=== PATIENT | male | born 1935 | race Caucasian/White ===

== ENCOUNTER 2016-04-20 10:36 | Inpatient (IN) | payer MEDICARE, MEDICAID ==
[~2016-04-20] VITALS: Ht 175.3 cm; Wt 63.5 kg
[~2016-04-20 10:36] MED LIST: ACETAMINOPHEN650 M1 PO; BACTRIM DS TAB1 EAC1 ORAL; BISACODYL10 MG RC; CALCIUM + VITA1 EACH PO; DESYREL100 MG PO; DESYREL50 MG PO; DOCUSATE SODIU100 MG ORAL; DOCUSATE SODIU250 MG PO; FERROUS SULFAT325 M1 PO; FLOMAX0.4 MG ORAL; GABAPENTIN300 MG PO; HALDOL1 MG PO; KLONOPIN0.5 MG ORAL; LEVETIRACETAM500 MG ORAL; MEGACE400 MG/10 PO; METAMUCIL1 PKT GT; METOPROLOL SUCC50 MG PO; MILK OF MA400 MG/5 M PO; MULTIVITAMINS1 EAC1 PO; NEURONTIN600 MG PO; RESTORIL7.5 MG PO; SEROQUEL200 MG PO; SEROQUEL400 MG PO; VITAMIN C500 MG PO; ZYPREXA5 MG ORAL
[2016-04-20 11:30] VITALS: BP 136/63
[2016-04-20 11:53] LABS: BASOPHILS % (AUTO) 2.2 % (0.0-2.0); EOSINOPHILS % (AUTO) 5.9 % (0.0-3.0); LYMPHOCYTES % (AUTO) 30.6 % (20.0-45.0); MEAN CORPUSCULAR HEMOGLOBIN 31.9 PG (27.0-31.0); MEAN CORPUSCULAR HGB CONC 32.8 G/DL (32.0-36.0); MEAN CORPUSCULAR VOLUME 97 FL (80-99); MEAN PLATELET VOLUME 7.6 FL (6.5-10.1); MONOCYTES % (AUTO) 10.9 % (1.0-10.0); NEUTROPHILS % (AUTO) 50.5 % (45.0-75.0); PLATELET COUNT 199 K/UL (150-450); RED BLOOD COUNT 3.57 M/UL (4.70-6.10); RED CELL DISTRIBUTION WIDTH 12.3 % (11.6-14.8); WHITE BLOOD COUNT 5.6 K/UL (4.8-10.8)
[2016-04-20 11:58] LABS: PROTHROMBIN TIME 10.2 SEC (9.30-11.50)
[2016-04-20 12:02] LABS: ALANINE AMINOTRANSFERASE 13 U/L (3-41); ALBUMIN/GLOBULIN RATIO 1.1 (1.0-2.7); ANION GAP 11 (5-15); ASPARTATE AMINO TRANSFERASE 19 U/L (5-40); CARBON DIOXIDE 28 mEQ/L (20-30); CHLORIDE 98 mEQ/L (98-107); HEMOLYSIS 9; LIPASE 27 U/L (< 60); POTASSIUM 4.4 mEQ/L (3.4-4.9); SODIUM 137 mEQ/L (135-145); TOTAL PROTEIN 6.2 g/dL (6.6-8.7); TROPONIN I < 0.30 ng/mL (<=0.30)
--- NOTE | 2016-04-20 12:05 | Diagnostic Imaging Report ---
Indication: Chest Pain Comparison: 01/16/12 A single view chest radiograph was obtained. Findings: No definite infiltrate or pulmonary vascular congestion identified. The heart is normal in size. The aorta is mildly enlarged consistent with atherosclerotic vascular disease. The bones are osteopenic. Impression: No acute disease
[2016-04-20 12:12] LABS: APPEARANCE,URINE SLIGHTLY CLOUDY; KETONES,URINE NEGATIVE (NEGATIVE); LEUKOCYTE ESTERASE ,URINE 1+ (NEGATIVE); NITRITE,URINE POSITIVE (NEGATIVE); PH,URINE 7 (4.5-8.0); PROTEIN,URINE NEGATIVE (NEGATIVE); UROBILINOGEN,URINE NORMAL MG/DL (0.0-1.0)
[2016-04-20 12:13] LABS: CKMB 2.1 ng/mL (< 6.7)
[2016-04-20 12:25] LABS: BACTERIA,URINE MODERATE /HPF; RBC,URINE 0-2 /HPF (0 - 0); SQUAMOUS EPITHELIAL CELL,UR OCCASIONAL /LPF (NONE/OCC)
[2016-04-20] MEDS ORDERED: cefTRIAXone 1 GM in NS 55 ML IVPB ONE (12:45)
[2016-04-20] MEDS ORDERED: cefTRIAXone 1 GM in D5W 55 ML IVPB ONE (13:30)
[2016-04-20 13:49] VITALS: BP 146/78
--- NOTE | 2016-04-20 14:22 | Emergency Room Report ---
History of Present Illness General Chief Complaint: General Complaint Source: EMS, Caregiver Present Illness HPI Patient presents with complaints of general weakness Patient himself is nonverbal cannot provide any input Patient had a previous CVA History of present illness remains significantly limited Patient's caretakers state that the patient has appeared to be weaker than usual less interactive No reports of vomiting or diarrhea Unknown regarding obvious fever Denies any rash Allergies: Coded Allergies: No Known Allergies (Verified , 02/19/06) Patient History Limited by: medical condition Past Medical History: see triage record Pertinent Family History: none Reviewed Nursing Documentation: PMH: Agreed, PSxH: Agreed Nursing Documentation-PMH Past Medical History Deferred: Pt Cognitively Impaired Hx Cardiac Problems: No Hx Hypertension: No Hx Pacemaker: No Hx Asthma: No Hx COPD: No Hx Diabetes: No Hx Cancer: No Hx Gastrointestinal Problems: No Hx Dialysis: No History Of Psychiatric Problem: No Hx Neurological Problems: No - Seizures Hx Cerebrovascular Accident: No Hx Dementia: Yes Hx Seizures: Yes Hx Aphasia: Yes Review of Systems All Other Systems: limited - Other than the ones mentioned in the history of present illness all others are reviewed however they do stay limited due to the patient's mental status Physical Exam Vital Signs Date Time Temp Pulse Resp B/P Pulse Ox O2 Delivery O2 Flow Rate FiO2 04/20/16 11:00 98.9 04/20/16 11:00 79 16 120/80 98 Room Air Sp02 EP Interpretation: reviewed, normal General Appearance: well appearing, no apparent distress Head: normocephalic, atraumatic Eyes: bilateral eye EOMI, bilateral eye PERRL ENT: hearing grossly normal, TMs + canals normal, uvula midline, dry mucus membranes Neck: full range of motion, supple, no meningismus, no bony tend Respiratory: no rhonchi, no respiratory distress, no retraction, no accessory muscle use, crackles - Crackles in the right lower lobe Cardiovascular #1: normal peripheral pulses, regular rate, rhythm, no edema, no gallop, no JVD, no murmur Gastrointestinal: normal bowel sounds, non tender, soft, no mass, no organomegaly, non-distended, no guarding, no hernia, no pulsatile mass, no rebound Genitourinary: no CVA tenderness Musculoskeletal: other - Patient generally weak appears to have deficit on the right side compared to left 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 that there is no acute deficit Neurologic: responsive - To verbal stimuli patient tracks well with his eyes, but does not follow commands and is nonverbal, , sensory intact Psychiatric: mood/affect normal Skin: normal color, no rash, warm/dry, palpation normal Lymphatic: normal inspection, no adenopathy Medical Decision Making Diagnostic Impression: Primary Impression: Sepsis Additional Impressions: UTI (urinary tract infection) Dehydration ER Course Patient is a fairly complex patient with multiple differential to consideration including but not limited to cardiac cardiopulmonary , infectious and vascular emergencies Patient's urine sample did show positive nitrites and findings in line with UTI Patient was further hydrated no signs of any severe sepsis and the patient was admitted for further care Please note that initially CT head was ordered however the patient is unable to tolerate the test Labs Test 04/20/16 11:39 04/20/16 11:56 White Blood Count 5.6 K/UL (4.8-10.8) Red Blood Count 3.57 M/UL (4.70-6.10) Hemoglobin 11.4 G/DL (14.2-18.0) Hematocrit 34.8 % (42.0-52.0) Mean Corpuscular Volume 97 FL (80-99) Mean Corpuscular Hemoglobin 31.9 PG (27.0-31.0) Mean Corpuscular Hemoglobin Concent 32.8 G/DL (32.0-36.0) Red Cell Distribution Width 12.3 % (11.6-14.8) Platelet Count 199 K/UL (150-450) Mean Platelet Volume 7.6 FL (6.5-10.1) Neutrophils (%) (Auto) 50.5 % (45.0-75.0) Lymphocytes (%) (Auto) 30.6 % (20.0-45.0) Monocytes (%) (Auto) 10.9 % (1.0-10.0) Eosinophils (%) (Auto) 5.9 % (0.0-3.0) Basophils (%) (Auto) 2.2 % (0.0-2.0) Prothrombin Time 10.2 SEC (9.30-11.50) Prothromb Time International Ratio 1.0 (0.9-1.1) Activated Partial Thromboplast Time 21 SEC (23-33) Sodium Level 137 mEQ/L (135-145) Potassium Level 4.4 mEQ/L (3.4-4.9) Chloride Level 98 mEQ/L (98-107) Carbon Dioxide Level 28 mEQ/L (20-30) Anion Gap 11 (5-15) Blood Urea Nitrogen 15 mg/dL (7-23) Creatinine 1.0 mg/dL (0.7-1.2) Estimat Glomerular Filtration Rate mL/min (>60) Glucose Level 95 mg/dL (74-106) Calcium Level 9.0 mg/dL (8.6-10.2) Total Bilirubin < 0.2 mg/dL (0.0-1.2) Aspartate Amino Transf (AST/SGOT) 19 U/L (5-40) Alanine Aminotransferase (ALT/SGPT) 13 U/L (3-41) Alkaline Phosphatase 66 U/L (40-129) Total Creatine Kinase 73 U/L (38-174) Creatine Kinase MB 2.1 ng/mL (< 6.7) Creatine Kinase MB Relative Index 2.8 Troponin I < 0.30 ng/mL (<=0.30) Pro-B-Type Natriuretic Peptide 148 pg/mL (0-450) Total Protein 6.2 g/dL (6.6-8.7) Albumin 3.3 g/dL (3.5-5.2) Globulin 2.9 g/dL Albumin/Globulin Ratio 1.1 (1.0-2.7) Lipase 27 U/L (< 60) Urine Color Pale yellow Urine Appearance Slightly cloudy Urine pH 7 (4.5-8.0) Urine Specific [place] 1.010 (1.005-1.035) Urine Protein Negative (NEGATIVE) Urine Glucose (UA) Negative (NEGATIVE) Urine Ketones Negative (NEGATIVE) Urine Occult Blood 1+ (NEGATIVE) Urine Nitrite Positive (NEGATIVE) Urine Bilirubin Negative (NEGATIVE) Urine Urobilinogen Normal MG/DL (0.0-1.0) Urine Leukocyte Esterase 1+ (NEGATIVE) Urine RBC 0-2 /HPF (0 - 0) Urine WBC 2-4 /HPF (0 - 0) Urine Squamous Epithelial Cells Occasional /LPF Urine Bacteria Moderate /HPF (NONE) Rhythm Strip Diag. Results EP Interpretation: yes Rate: 77 Rhythm: NSR, no PVC's, no ectopy Chest X-Ray Diagnostic Results EP Interpretation: Yes Findings: no consolidation, no effusion, no pneumothorax, other - Chronic elevated right hemidiaphragm Number of Views: 1 CT/MRI/US Diagnostic Results CT/MRI/US Diagnostic Results : Impression CT head ordered: Patient unable to tolerate the test no exam done Last Vital Signs Date Time Temp Pulse Resp B/P Pulse Ox O2 Delivery O2 Flow Rate FiO2 04/20/16 13:49 97.1 68 21 146/78 100 Room Air Status: improved Disposition: ADMITTED INPATIENT Condition: Serious Referrals: NON PHYSICIAN (PCP) KATE GONSALEZ D.O. Apr 20, 2016 14:22
[2016-04-20 17:22] VITALS: BP 156/88
[2016-04-20] MEDS ORDERED: KLONOPIN0.5 MG ORAL (18:43)
[2016-04-20] MEDS ORDERED: RESTASIS1 EACH BOTH EYES (18:43)
--- NOTE | 2016-04-20 18:49 | Cardiology Report ---
APPROVED REPORT EKG Measurement Heart [id number] 160P49 [id number] Sinus rhythm with sinus arrhythmia with occasional premature ventricular complexes Otherwise normal ECG
[2016-04-20 20:00] VITALS: BP 140/66
[2016-04-20] MEDS ORDERED: QUEtiapine 200mg tab ORAL SCH (21:00)
[2016-04-20] MEDS ORDERED: clonazePAM 0.5mg tab ORAL SCH (21:00)
[2016-04-20] MEDS ORDERED: TraZODone 100mg tab ORAL SCH (21:00)
[2016-04-20] MEDS: Docusate 100mg cap ORAL SCH (22:08)
[2016-04-20] MEDS: OLANZapine 2.5mg tab ORAL SCH (22:09)
--- NOTE | 2016-04-20 23:37 | History and Physical Report ---
DATE OF ADMISSION: 04/20/2016 CHIEF COMPLAINT AND REASON FOR HOSPITALIZATION: The patient is a 80-year-old man, admitted with weakness and failure to thrive. HISTORY OF PRESENT ILLNESS: The patient is a resident of a home for the developmentally disabled. He has a history of likely mental retardation, psychosis, and epilepsy, which has been controlled. He is wheelchair bound after a hip fracture apparently in 2011. He never regained his strength. Over the past few days, he has become increasingly weak, unable to participate in transfers from the bed to the wheelchair, eating poorly, and declined in condition. The lead simulation modeling engineer sent him to the emergency room for concern of possible urinary tract infection or other treatable problem. The patient is unable to give the history. ALLERGIES: None known. MEDICATIONS: Metoprolol succinate 100 mg daily, clonazepam 0.25 mg in the morning and 0.75 mg at bedtime, Keppra 500 mg twice a day, olanzapine 5 mg twice a day, Haldol 1 mg three times a day, Seroquel 200 mg two times a day, Seroquel 400 mg at bedtime, trazodone 200 mg at bedtime, DSS 250 mg twice a day, and Restasis in both eyes twice a day. HABITS: He is a nondrinker and nonsmoker. SURGERIES: I believe he has had surgery for a hip fracture. SYSTEM REVIEW: The patient is unable. MAJOR PROBLEMS: As above. PHYSICAL EXAMINATION: GENERAL: The patient is seen in the emergency room lying in bed, in no acute distress. VITAL SIGNS: Temperature is 97.1, pulse 68, respirations 21, blood pressure 146/78, and BMI of 20.7. HEAD, EYES, EARS, NOSE, AND THROAT: He is aphakic in both eyes. Sclerae nonicteric. Oral mucosa moist. NECK: No adenopathy or thyroid enlargement. LUNGS: Clear. HEART: Rhythm is regular. I hear no murmur. ABDOMEN: Soft without organomegaly or masses. GENITOURINARY: Penis and testes normal. He is incontinent of urine. RECTAL: The patient was combative and unable to participate. SKIN: No decubitus. There is about 1 to 2 mm hyperpigmented lesion on the nose, which could be a scab or possibly an early basal cell carcinoma. NEUROLOGIC: He is alert and responsive. He shakes the examiner's hand. He moves all extremities with normal strength. Ocular motions are intact in all directions. Smile symmetric. Tongue is midline. He is unable to talk or carry on a conversation. Plantars showed no response. LABORATORY DATA: Labs are reviewed on the computer. IMPRESSION: 1. Decline in his status with difficulty participating and transfers and care. 2. Anorexia. 3. Mild protein-calorie malnutrition with an albumin of 3.3. 4. 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 5. Weakness, concerned for possible pain as he has been moaning, possible occult fracture or other reasons. PLAN: The patient will be observed as far as his behavior and neurologic condition. Pain Management. We will get some imaging to rule out occult fractures. We will watch him for any new developments, and check urine and urine culture for possible urinary tract infection and make further treatment plans as his condition warrants. Zhao Cordova M.D. DR: SHANE JOB#: [id number] CC:
[2016-04-21 04:43] VITALS: BP 139/72
[2016-04-21] MEDS: QUEtiapine 200mg tab ORAL SCH ×2 (06:20→12:13)
[2016-04-21 08:00] VITALS: BP 116/54
[2016-04-21 08:25] LABS: BASOPHILS % (AUTO) 1.4 % (0.0-2.0); EOSINOPHILS % (AUTO) 3.8 % (0.0-3.0); LYMPHOCYTES % (AUTO) 27.4 % (20.0-45.0); MEAN CORPUSCULAR HEMOGLOBIN 32.2 PG (27.0-31.0); MEAN CORPUSCULAR HGB CONC 33.2 G/DL (32.0-36.0); MEAN CORPUSCULAR VOLUME 97 FL (80-99); MEAN PLATELET VOLUME 7.2 FL (6.5-10.1); MONOCYTES % (AUTO) 7.9 % (1.0-10.0); NEUTROPHILS % (AUTO) 59.4 % (45.0-75.0); PLATELET COUNT 199 K/UL (150-450); RED BLOOD COUNT 3.51 M/UL (4.70-6.10); RED CELL DISTRIBUTION WIDTH 11.7 % (11.6-14.8); WHITE BLOOD COUNT 5.2 K/UL (4.8-10.8)
[2016-04-21 08:44] LABS: ALANINE AMINOTRANSFERASE 11 U/L (3-41); ALBUMIN/GLOBULIN RATIO 1.1 (1.0-2.7); ANION GAP 10 (5-15); ASPARTATE AMINO TRANSFERASE 17 U/L (5-40); CALCIUM 8.7 mg/dL (8.6-10.2); CARBON DIOXIDE 28 mEQ/L (20-30); CHLORIDE 98 mEQ/L (98-107); CHOLESTEROL 130 mg/dL (< 200); CHOLESTEROL/HDL RATIO 2.8 (3.3-4.4); CREATININE 1.1 mg/dL (0.7-1.2); HEMOLYSIS 4; LDL CHOLESTEROL (CALC.) 71 mg/dL (60-99); POTASSIUM 4.2 mEQ/L (3.4-4.9); SODIUM 136 mEQ/L (135-145); TOTAL PROTEIN 5.9 g/dL (6.6-8.7)
[2016-04-21 08:48] LABS: TROPONIN I < 0.30 ng/mL (<=0.30)
[2016-04-21] MEDS ORDERED: clonazePAM 0.5mg tab ORAL SCH (09:00)
[2016-04-21] MEDS ORDERED: QUEtiapine 200mg tab ORAL SCH (09:00)
[2016-04-21] MEDS ORDERED: TraZODone 100mg tab ORAL SCH (09:00)
[2016-04-21] MEDS ORDERED: Enoxaparin 40mg Inj SUBQ SCH (09:00)
[2016-04-21 09:04] LABS: FREE T3 1.8 pg/mL (2.3-4.2)
[2016-04-21] MEDS: Docusate 100mg cap ORAL SCH ×2 (10:29→18:00)
[2016-04-21] MEDS: OLANZapine 2.5mg tab ORAL SCH ×2 (10:29→18:36)
[2016-04-21] MEDS ORDERED: BACTRIM-DS1 EA ORAL (14:05)
[2016-04-21 16:00] VITALS: BP 142/63
[2016-04-21] MEDS ORDERED: Bactrim DS (160mg/800mg) tab ORAL SCH (18:00)
[2016-04-21] MEDS ORDERED: Haloperidol 1mg tab ORAL SCH (21:00)
--- NOTE | 2016-04-22 17:37 | Discharge Summary ---
DATE OF ADMISSION: 04/20/2016 DATE OF DISCHARGE: 04/21/2016 NOTE: POOR AUDIO QUALITY PERTINENT HISTORY: The patient is a 80-year-old man, admitted with weakness and failure to thrive. He has a history of mental retardation, psychosis, and epilepsy. He had hip fracture in 2001, has not been ambulatory since then, but transfer from the bed to the wheelchair, but now he has become increasingly weak and unable to participate in transfers. PERTINENT PHYSICAL FINDINGS: GENERAL: The patient is alert, nonverbal. HEENT: He is aphakic. LUNGS: Clear. HEART: Regular rhythm. ABDOMEN: Soft without organomegaly. EXTREMITIES: No edema. NEUROLOGIC: Alert and responsive. No focal weakness. Moves all extremities. COURSE IN THE HOSPITAL: The patient was observed for any new medical problems. He had mild anemia with the hemoglobin of 11.3, normal electrolytes, and normal troponins x2. Albumin is 3.3. TSH was normal . He tolerated diet well. Short after arrival to the floor, he became agitated and trying to climb on the bed and his usual psychotropic medications were resumed and a sitter was placed and he became calm again. Urinalysis had 2 to 4 white cells per high-power field and moderate bacteria. Culture growing gram-negative bacteria, likely contaminant specimen but he was stared on Bactrim. The patient apparently was at his baseline mental status discharged back to this facility in stable condition but chronically weak FINAL DIAGNOSES: 1. Failure to thrive. 2. Gram-negative urinary tract infection versus contaminated specimen. 3. Mental retardation. 4. History of psychosis. 5. History of . 6. Gait disorder, status post hip fracture in 2011. 7. Generalized weakness. 8. Declined status, which could be due to psychotropic treatment or other unrecognized illness to be determined later. DISCHARGE DISPOSITION: Discharge back to . Zhao Cordova M.D. DR: JORGE A JOB#: [id number] CC:
[2016-04-23 10:32] LABS: CORTISOL AM 12.6 ug/dL (6.0-20.0)
== END 2016-04-21 20:05 | disposition home or self-care (01) | DRG 690 ==
LOC: ENRESERVTM → ENRESERVDT → EMR 11:10 → 4E 11:28 → EDBEDREQ 12:23
DX: N39.0 Urinary tract infection, site not specified (principal); R63.0 Anorexia; E86.0 Dehydration; R62.7 Adult failure to thrive; E44.1 Mild protein-calorie malnutrition; Z78.1 Physical restraint status; D64.9 Anemia, unspecified; F79 Unspecified intellectual disabilities; R26.9 Unspecified abnormalities of gait and mobility; Z68.20 Body mass index [BMI] 20.0-20.9, adult; Z99.3 Dependence on wheelchair
CPT/HCPCS: 36415; 71010; 80053; 80061; 80299; 81003; 82533; 82550; 82553; 83690; 83880; 84439; 84443; 84480; 84481; 84484; 85025; 85610; 85730; 87081; 87086; 87181; 93005

== ENCOUNTER 2017-03-12 11:32 | Inpatient (IN) | payer MEDICARE, MEDICAID ==
[~2017-03-12] VITALS: Ht 167.6 cm; Wt 68.0 kg
[~2017-03-12 11:32] MED LIST changes: +BACTRIM-DS1 EA ORAL; +RESTASIS1 EACH BOTH EYES
[2017-03-12 12:18] VITALS: BP 134/59
[2017-03-12] MEDS ORDERED: KLONOPIN0.5 MG ORAL (12:28)
[2017-03-12 12:33] LABS: ANION GAP 8 mmol/L (5-15); CALCIUM 8.9 MG/DL (8.5-10.1); CARBON DIOXIDE 25 MMOL/L (21-32); CHLORIDE 103 MMOL/L (98-107); CREATININE 0.9 MG/DL (0.55-1.30); POTASSIUM 5.3 MMOL/L (3.5-5.1); SODIUM 135 MMOL/L (136-145)
[2017-03-12 12:47] LABS: ALANINE AMINOTRANSFERASE 23 U/L (12-78); ALBUMIN/GLOBULIN RATIO 0.8 (1.0-2.7); ASPARTATE AMINO TRANSFERASE 35 U/L (15-37); CKMB 2.1 NG/ML (0.0-3.6); TOTAL PROTEIN 6.9 G/DL (6.4-8.2)
[2017-03-12 13:15] LABS: BASOPHILS % (AUTO) 1.8 % (0.0-2.0); EOSINOPHILS % (AUTO) 7.9 % (0.0-3.0); LYMPHOCYTES % (AUTO) 29.6 % (20.0-45.0); MEAN CORPUSCULAR HEMOGLOBIN 31.3 PG (27.0-31.0); MEAN CORPUSCULAR HGB CONC 32.8 G/DL (32.0-36.0); MEAN CORPUSCULAR VOLUME 95 FL (80-99); MEAN PLATELET VOLUME 7.2 FL (6.5-10.1); MONOCYTES % (AUTO) 12.3 % (1.0-10.0); NEUTROPHILS % (AUTO) 48.5 % (45.0-75.0); PLATELET COUNT 203 K/UL (150-450); RED BLOOD COUNT 3.76 M/UL (4.70-6.10); WHITE BLOOD COUNT 5.6 K/UL (4.8-10.8)
--- NOTE | 2017-03-12 13:17 | Emergency Room Report ---
History of Present Illness General Chief Complaint: Generalized Weakness Source: Medical Record, Caregiver Present Illness HPI History of present illness otherwise limited because patient is nonverbal History of schizophrenia, mental retardation per health care worker accompanying patient, facility sent patient because he's been making moaning noises more than usual, no bowel movement for 2-3 days. Health care worker states she has known patient for 3 years, seems at baseline relatively. facility also reports patient doesn't want to eat or drink in the last 2-3 days Allergies: Coded Allergies: No Known Allergies (Verified , 02/19/06) Patient History Limited by: medical condition Past Medical History: psych hx Past Surgical History: none Pertinent Family History: none Social History: Denies: smoking, alcohol use, drug use Immunizations: UTD Reviewed Nursing Documentation: PMH: Agreed, PSxH: Agreed Nursing Documentation-PMH Past Medical History Deferred: Pt Cognitively Impaired Past Medical History: No History, Except For Hx Cardiac Problems: No - mental retardation Hx Hypertension: Yes Hx Pacemaker: No Hx Asthma: No Hx COPD: No Hx Diabetes: No Hx Cancer: No Hx Gastrointestinal Problems: No Hx Dialysis: No History Of Psychiatric Problem: Yes - schizophrenia Hx Neurological Problems: Yes Hx Cerebrovascular Accident: No Hx Dementia: Yes Hx Seizures: Yes Hx Aphasia: Yes Review of Systems All Other Systems: limited - nonverbal Physical Exam Vital Signs Date Time Temp Pulse Resp B/P (MAP) Pulse Ox O2 Delivery O2 Flow Rate FiO2 03/12/17 11:44 97.2 81 16 134/59 99 Room Air Sp02 EP Interpretation: reviewed, normal General Appearance: normal inspection, well appearing, no apparent distress, alert, GCS 15, non-toxic Head: normocephalic, atraumatic Eyes: bilateral eye PERRL, bilateral eye EOMI ENT: normal ENT inspection, normal pharynx, no angioedema, TMs + canals normal , uvula midline, moist mucus membranes Neck: normal inspection, full range of motion, supple, thyroid normal, no meningismus, no bony tend Respiratory: normal inspection, lungs clear, normal breath sounds, no rhonchi, no respiratory distress, no retraction, no accessory muscle use, no wheezing, speaking full sentences Cardiovascular #1: regular rate, rhythm, no edema, no JVD, normal capillary refill Gastrointestinal: normal inspection, normal bowel sounds, non tender, soft, no mass, no peritonitis, non-distended, no guarding, no hernia, no pulsatile mass Genitourinary: no CVA tenderness Musculoskeletal: normal inspection, back normal, normal range of motion, no calf tenderness, pelvis stable, Aleja's Sign negative Neurologic: normal inspection, alert, responsive, ui ux engineer III-XII nml as tested, motor strength/tone normal, cerebellar normal, normal gait, speech normal Psychiatric: normal inspection, judgement/insight normal, mood/affect normal, no suicidal/homicidal ideation, no delusions Skin: normal inspection, normal color, no rash Lymphatic: normal inspection, no adenopathy Medical Decision Making Medicare Attestation I Ney Blevins MD hereby attest that the medical record entry for date of service, 03/12/17 accurately reflects signatures/notations that I made in my capacity as MD when I treated/diagnosed the above listed Medicare beneficiary. I attest that this information is true, accurate and complete to the best of my knowledge. I understand that any falsification, omission, or concealment of material fact may subject me to administrative, civil, or criminal liability. This patient warrants hospital admission for extreme of age and has a condition that cannot be treated as outpatient. Diagnostic Impression: Primary Impression: Episode of generalized weakness Additional Impression: Constipation Qualified Codes: K59.00 - Constipation, unspecified ER Course Labs do not show leukocytosis, H&H stable Mild hyperkalemia, likely hemolyzed from lab error Chest x-ray unchanged from March Vital signs stable, afebrile admitted for weakness, failure to thrive and not eating Dr. Cordova endorsed for [facility] [place] [place] admission at 1:20 PM as previous admitting physician EKG Diagnostic Results Rate: normal, other - PACs, bigeminy Rhythm: NSR ST Segments: no acute changes ASA given to the pt in ED: No Rhythm Strip Diag. Results EP Interpretation: yes Rate: 74 Rhythm: NSR, no ectopy, other - 1PVC Chest X-Ray Diagnostic Results Chest X-Ray Diagnostic Results : Chest X-Ray Ordered: Yes # of Views/Limited/Complete: 1 View Indication: Other - FTT EP Interpretation: Yes Interpretation: no consolidation, no effusion, no pneumothorax Impression: No acute disease Electronically Signed by: Dr Ney Blevins MD Last Vital Signs Date Time Temp Pulse Resp B/P (MAP) Pulse Ox O2 Delivery O2 Flow Rate FiO2 03/12/17 12:18 97.2 16 134/59 99 Room Air 03/12/17 11:44 81 Status: improved Disposition: ADMITTED INPATIENT Condition: Stable Referrals: NON PHYSICIAN (PCP) NEY BLEVINS M.D. Mar 12, 2017 13:17
[2017-03-12 13:36] VITALS: BP 115/58
[2017-03-12 14:14] LABS: APPEARANCE,URINE CLEAR; KETONES,URINE NEGATIVE (NEGATIVE); LEUKOCYTE ESTERASE ,URINE NEGATIVE (NEGATIVE); NITRITE,URINE NEGATIVE (NEGATIVE); PH,URINE 6.5 (4.5-8.0); PROTEIN,URINE NEGATIVE (NEGATIVE); UROBILINOGEN,URINE NORMAL MG/DL (0.0-1.0)
[2017-03-12 14:43] LABS: WBC,URINE 0-2 /HPF (0 - 0)
[2017-03-12 14:44] LABS: BACTERIA,URINE FEW /HPF; SQUAMOUS EPITHELIAL CELL,UR OCCASIONAL /LPF (NONE/OCC)
--- NOTE | 2017-03-12 15:10 | Diagnostic Imaging Report ---
Indication: Cough Technique: One view of the chest Comparison: 04/20/2016 Findings: The right hemidiaphragm is elevated. There are compressive atelectatic changes at both lung bases the left hemidiaphragm is obscured, could indicate a small amount of pleural fluid. There is reticular parenchymal opacity in the right upper lung and retrocardiac region. Impression: Suspect right upper lung and retrocardiac infiltrates Possible small left pleural effusion Other findings as noted
[2017-03-12 15:48] VITALS: BP 154/76
[2017-03-12] MEDS ORDERED: D5 1/2NS 1,000 ML IV SCH (18:30)
[2017-03-12] MEDS: Docusate 250mg cap ORAL SCH (19:06)
[2017-03-12] MEDS: TraZODone 100mg tab ORAL SCH (21:52)
[2017-03-12] MEDS: Heparin 5000 units/ml inj SUBQ SCH (21:54)
[2017-03-13 07:59] LABS: BASOPHILS % (AUTO) 1.6 % (0.0-2.0); EOSINOPHILS % (AUTO) 7.6 % (0.0-3.0); LYMPHOCYTES % (AUTO) 37.4 % (20.0-45.0); MEAN CORPUSCULAR HEMOGLOBIN 32.8 PG (27.0-31.0); MEAN CORPUSCULAR HGB CONC 34.7 G/DL (32.0-36.0); MEAN CORPUSCULAR VOLUME 94 FL (80-99); MEAN PLATELET VOLUME 7.5 FL (6.5-10.1); NEUTROPHILS % (AUTO) 42.5 % (45.0-75.0); PLATELET COUNT 213 K/UL (150-450); RED BLOOD COUNT 3.97 M/UL (4.70-6.10); WHITE BLOOD COUNT 4.9 K/UL (4.8-10.8)
[2017-03-13 08:00] VITALS: BP 147/79
[2017-03-13 08:30] LABS: ALANINE AMINOTRANSFERASE 21 U/L (12-78); ALBUMIN/GLOBULIN RATIO 0.7 (1.0-2.7); ANION GAP 9 mmol/L (5-15); ASPARTATE AMINO TRANSFERASE 20 U/L (15-37); CALCIUM 9.2 MG/DL (8.5-10.1); CARBON DIOXIDE 23 MMOL/L (21-32); CHLORIDE 102 MMOL/L (98-107); POTASSIUM 4.3 MMOL/L (3.5-5.1); SODIUM 134 MMOL/L (136-145); TOTAL PROTEIN 7.3 G/DL (6.4-8.2)
[2017-03-13] MEDS: Metoprolol Succinate XL 100mg tab ORAL SCH (08:57)
[2017-03-13] MEDS: Docusate 250mg cap ORAL SCH ×2 (08:58→17:27)
[2017-03-13] MEDS: Heparin 5000 units/ml inj SUBQ SCH ×2 (09:02→20:53)
[2017-03-13 11:46] VITALS: BP 156/70
[2017-03-13] MEDS: cefTRIAXone 1 GM in D5W 55 ML IVPB SCH (12:00)
[2017-03-13] MEDS: Azithromycin 250mg tab ORAL SCH (12:07)
[2017-03-13] MEDS ORDERED: Haloperidol 5mg/ml Inj IM PRN (14:45)
[2017-03-13 16:00] VITALS: BP 142/65
[2017-03-13] MEDS ORDERED: NS 500ML ONE (16:15)
[2017-03-13 20:00] VITALS: BP 135/70
[2017-03-13] MEDS: TraZODone 100mg tab ORAL SCH (20:52)
--- NOTE | 2017-03-13 21:45 | History and Physical Report ---
DATE OF ADMISSION: 03/12/2017 CHIEF COMPLAINT/REASON FOR HOSPITALIZATION: The patient is an 81-year-old male, admitted with weakness and failure to thrive. HISTORY OF PRESENT ILLNESS: The patient has had a history of mental retardation, nonverbal, and schizophrenia, on multiple medications. He also apparently had a seizure disorder, but no recent seizure. He lives in assisted living facility for people with mental disorders. The patient over the last few days has been eating less, increasing lethargy, increasing weakness, and presented to the hospital. The staff is concerned that he may have had an infection or other change in condition. The patient is unable to give a history. PAST SURGICAL HISTORY: Hip fracture, which left him wheelchair independent, although he can bear weight. MEDICATIONS: Toprol 100 mg daily, Klonopin 0.25 mg in the morning and 0.75 mg at bedtime, Keppra 500 mg b.i.d., olanzapine 10 mg half a pill of 5 mg b.i.d., trazodone 200 mg at bedtime, Seroquel 200 mg three times a day and Seroquel 400 mg at bedtime, and DSS 250 twice a day. SYSTEM REVIEW: The patient is unable. PHYSICAL EXAMINATION: GENERAL: The patient is lying in bed, in no acute distress. He is looking about, is nonverbal. VITAL SIGNS: Temperature 98.1, pulse 89, respirations 16, blood pressure 147/79, and pulse oximetry 94% on room air. HEAD, EYES, EARS, NOSE, AND THROAT: Sclerae are nonicteric. Ocular motions are intact in all directions. Oral mucosa slightly dry. There is some mild skin irritation around the nose, but no abscess. NECK: No adenopathy. LUNGS: Clear. HEART: Regular rhythm. No murmur. ABDOMEN: Soft. No organomegaly or masses. EXTREMITIES: No edema, cyanosis, or clubbing. GENITOURINARY: Penis and testes normal. RECTAL: Deferred. PERTINENT LABORATORY AND DIAGNOSTIC DATA: Chest x-ray shows suspect right upper lung and retrocardiac infiltrates, possible small left pleural effusion. White count 4.9, hemoglobin is 13. Sodium 135, potassium 5.3, BUN 19, and creatinine 0.9. Troponin is 0. Albumin 3.1. Calcium is 8.9. The urinalysis shows 5 to 10 RBCs and 0 to 2 white cells per high-power field. IMPRESSION: 1. Failure to thrive. 2. Mild dehydration. 3. Mild protein-calorie malnutrition. 4. Epilepsy. 5. Mental retardation. 6. Schizophrenia. 7. Questionable pulmonary infiltrates versus chronic changes on chest x-ray. 8. Nonambulatory after prior hip fracture. 9. Advanced age. PLAN: The patient will be observed for his mental status, hydration, pulmonary problems, empiric antibiotics have been started. I have lowered the dose of his antipsychotics, which may make him lethargic and we will get a psychiatric consult. In view of his inability to give a history, he needs to be watched closely as there is a recent decline in status. I have discussed this with his vice president business & corporate development, Yoselyn Graff who is the account administrator of his facility. Zhao Cordova M.D. DR: ROXANNE JOB#: [id number] CC:
[2017-03-14] VITALS: BP 138/88
[2017-03-14 04:00] VITALS: BP 144/83
[2017-03-14 07:43] LABS: BASOPHILS % (AUTO) 1.4 % (0.0-2.0); EOSINOPHILS % (AUTO) 3.3 % (0.0-3.0); LYMPHOCYTES % (AUTO) 30.8 % (20.0-45.0); MEAN CORPUSCULAR HEMOGLOBIN 31.8 PG (27.0-31.0); MEAN CORPUSCULAR HGB CONC 33.6 G/DL (32.0-36.0); MEAN CORPUSCULAR VOLUME 95 FL (80-99); MEAN PLATELET VOLUME 7.5 FL (6.5-10.1); MONOCYTES % (AUTO) 11.2 % (1.0-10.0); NEUTROPHILS % (AUTO) 53.3 % (45.0-75.0); PLATELET COUNT 232 K/UL (150-450); RED BLOOD COUNT 4.32 M/UL (4.70-6.10); RED CELL DISTRIBUTION WIDTH 11.7 % (11.6-14.8); WHITE BLOOD COUNT 5.6 K/UL (4.8-10.8)
[2017-03-14 08:00] VITALS: BP_SYST 140; BP_SYST 20; BP_DIAS 76; BP_DIAS 94
[2017-03-14] MEDS: Heparin 5000 units/ml inj SUBQ SCH ×2 (08:23→20:24)
[2017-03-14] MEDS: Metoprolol Succinate XL 100mg tab ORAL SCH (08:25)
[2017-03-14] MEDS: Azithromycin 250mg tab ORAL SCH (08:25)
[2017-03-14] MEDS: Docusate 250mg cap ORAL SCH ×2 (08:25→17:33)
[2017-03-14] MEDS: cefTRIAXone 1 GM in D5W 55 ML IVPB SCH (08:26)
[2017-03-14 08:39] LABS: ANION GAP 11 mmol/L (5-15); CALCIUM 9.2 MG/DL (8.5-10.1); CARBON DIOXIDE 24 MMOL/L (21-32); CHLORIDE 101 MMOL/L (98-107); POTASSIUM 4.6 MMOL/L (3.5-5.1); SODIUM 136 MMOL/L (136-145)
--- NOTE | 2017-03-14 11:55 | General Progress Note ---
Assessment/Plan Problem List: (1) Anorexia ICD Codes: R63.0 - Anorexia SNOMED: 23638728 (2) Schizophrenia ICD Codes: F20.9 - Schizophrenia, unspecified SNOMED: 01906173 (3) Mental retardation ICD Codes: F79 - Unspecified intellectual disabilities SNOMED: 82077563, 224777163, 401640723 (4) Abnormal chest xray ICD Codes: R93.8 - Abnormal findings on diagnostic imaging of other specified body structures SNOMED: 351128313, 873646839 (5) Weakness ICD Codes: R53.1 - Weakness SNOMED: 96200439 (6) Episode of generalized weakness ICD Codes: R53.1 - Weakness SNOMED: 61707131 (7) Failure to thrive SNOMED: 37324023 Assessment/Plan antipsychotic doses reduced, watch po intake and behavior, repeat cxr, empiric atb for possible cap Subjective ROS Limited/Unobtainable: Yes Allergies: Coded Allergies: No Known Allergies (Verified , 02/19/06) Objective Last 24 Hour Vital Signs Date Time Temp Pulse Resp B/P (MAP) Pulse Ox O2 Delivery O2 Flow Rate FiO2 03/14/17 08:25 92 140/76 03/14/17 08:00 97.3 92 20 20/94 94 03/14/17 08:00 97.3 92 20 140/76 94 Room Air 03/14/17 07:16 97.3 03/14/17 04:00 100.0 94 21 144/83 94 03/14/17 00:00 98.5 91 21 138/88 93 03/13/17 20:00 98.6 95 21 135/70 95 03/13/17 16:00 97.9 96 18 142/65 97 Room Air Laboratory Tests 03/14/17 05:15: White Blood Count 5.6, Red Blood Count 4.32L, Hemoglobin 13.7L, Hematocrit 40.8L , Mean Corpuscular Volume 95, Mean Corpuscular Hemoglobin 31.8H, Mean Corpuscular Hemoglobin Concent 33.6, Red Cell Distribution Width 11.7, Platelet Count 232, Mean Platelet Volume 7.5, Neutrophils (%) (Auto) 53.3, Lymphocytes (% ) (Auto) 30.8, Monocytes (%) (Auto) 11.2H, Eosinophils (%) (Auto) 3.3H, Basophils (%) (Auto) 1.4, Sodium Level 136, Potassium Level 4.6, Chloride Level 101, Carbon Dioxide Level 24, Anion Gap 11, Blood Urea Nitrogen 17, Creatinine 1.0, Estimat Glomerular Filtration Rate , Glucose Level 88, Calcium Level 9.2, Troponin I 0.000 Height (Feet): 5 Height (Inches): 6.00 Weight (Pounds): 150 General Appearance: no apparent distress, alert EENT: normal ENT inspection Neck: normal alignment Cardiovascular: normal rate Respiratory/Chest: lungs clear Abdomen: non tender, soft Extremities: non-tender Edema: no edema noted Arm (L), no edema noted Arm (R), no edema noted Leg (L), no edema noted Leg (R), no edema noted Pedal (L), no edema noted Pedal (R), no edema noted Generalized Neurologic: disoriented FER CABA Mar 14, 2017 11:55
[2017-03-14 12:00] VITALS: BP 126/77
--- NOTE | 2017-03-14 13:49 | Diagnostic Imaging Report ---
Indication: Cough Technique: XRAY Chest 1v Comparison: 03/12/2017 Findings: Heart size and mediastinal contours are stable. There is slightly increased interstitial opacification/edema. Patchy opacities in the medial right lung and retrocardiac left lung unchanged. There is no large pleural effusion. No definite pneumothorax. Bones appear demineralized. No acute osseous abnormality seen. Impression: Slight interval worsening of interstitial opacification/edema. Persistent vague density in the medial right upper lung and patchy retrocardiac opacity.
--- NOTE | 2017-03-14 14:23 | Cardiology Report ---
APPROVED REPORT EKG Measurement Heart [id number] 142P18 [id number] Normal sinus rhythm with sinus arrhythmia Normal ECG
--- NOTE | 2017-03-14 14:35 | Cardiology Report ---
APPROVED REPORT EKG Measurement Heart [id number] RI 164P37 [id number] Sinus rhythm with premature atrial complexes in a pattern of bigeminy Cannot rule out Anterior infarct, age undetermined Abnormal ECG
[2017-03-14 16:00] VITALS: BP 138/74
[2017-03-14] MEDS: TraZODone 100mg tab ORAL SCH (20:21)
[2017-03-14 20:29] VITALS: BP 154/70
[2017-03-15 00:20] VITALS: BP 137/72
[2017-03-15 04:00] VITALS: BP 134/83
[2017-03-15 08:00] VITALS: BP 130/80
[2017-03-15] MEDS ORDERED: ZITHROMAX500 MG ORAL (09:55)
[2017-03-15] MEDS ORDERED: AZITHROMYCIN250 MG ORAL (09:56)
[2017-03-15] MEDS: Docusate 250mg cap ORAL SCH (10:26)
[2017-03-15 10:27] VITALS: BP 130/80
[2017-03-15] MEDS: Metoprolol Succinate XL 100mg tab ORAL SCH (10:27)
[2017-03-15] MEDS: cefTRIAXone 1 GM in D5W 55 ML IVPB SCH (10:27)
[2017-03-15] MEDS: Azithromycin 250mg tab ORAL SCH (10:27)
[2017-03-15] MEDS: Heparin 5000 units/ml inj SUBQ SCH (10:33)
--- NOTE | 2017-03-15 23:15 | Discharge Summary ---
DATE OF ADMISSION: 03/12/2017 DATE OF DISCHARGE: 03/15/2017 PERTINENT HISTORY: See the dictated History and Physical. The patient is an 81-year-old man admitted with failure to thrive, weakness, and lethargy. He is eating less, some anorexia, and presented to the hospital with concern of infection or other new problem. The patient has mental retardation and seizure disorder. He is nonverbal. PERTINENT PHYSICAL FINDINGS: GENERAL: The patient is lying in bed, nonverbal. HEENT: Oral mucosa is slightly dry. There is mild skin irritation in the nose. LUNGS: Clear. HEART: Regular rhythm. ABDOMEN: Soft without organomegaly. EXTREMITIES: No edema. NEUROLOGIC: Shows no focal findings. LABORATORY AND DIAGNOSTIC DATA: Pertinent labs show an albumin of 3.1. Chest x-ray showed suspect right upper lung and retrocardiac infiltrate and small left pleural effusion. HOSPITAL COURSE: He was started on empiric antibiotics. Repeat chest x-ray was done showing slight interval worsening of interstitial opacification and persistent vague density in the medial right upper lung and patchy retrocardiac opacity. However, the patient had no hypoxia, no cough, and it appeared that these changes may have been acute, possibly some aspiration, but he responded well to empiric antibiotics. His laboratories remained stable as did his clinical exam. His psychotropic medications were decreased in view of the lethargy and he had no exacerbation of psychosis. In view of the above, it was felt that he reached maximum hospital benefit and he was discharged back to his assisted living facility in stable condition. FINAL DIAGNOSES: 1. Failure to thrive. 2. Abnormal chest x-ray, possible aspiration pneumonia with comments as above versus chronic changes. 3. Mental retardation. 4. Schizophrenia. DISCHARGE DISPOSITION: Back to his assisted living on a regular diet as tolerated. DISCHARGE MEDICATIONS: Per the discharge medication list. Zhao Cordova M.D. DR: CHIDI JOB#: [id number] CC:
--- NOTE | 2017-03-17 16:54 | Diagnostic Imaging Report ---
Indications: Reason For Exam: DYSPHAGIA Technique: Patient ingested multiple substances under the supervision of speech pathology. Video fluoroscopic recording performed. Total fluoroscopy time 136 seconds. Total dose area product [id number] mGycm2 Comparison: none Findings: With all substances, there is early pooling in the vallecula and piriform sinuses. No evidence of aspiration or penetration. Good clearance of contrast bolus was swallowing demonstrated. Impression: Negative for aspiration or penetration Please refer to speech pathology report for more detailed analysis.
== END 2017-03-15 13:53 | disposition home or self-care (01) | DRG 640 ==
LOC: EMR 12:00 → 4E 12:35 → EDBEDREQ 13:59
DX: R62.7 Adult failure to thrive (principal); J69.0 Pneumonitis due to inhalation of food and vomit; E46 Unspecified protein-calorie malnutrition; R63.0 Anorexia; E86.0 Dehydration; F20.9 Schizophrenia, unspecified; K59.00 Constipation, unspecified; F79 Unspecified intellectual disabilities; G40.909 Epilepsy, unspecified, not intractable, without status epilepticus; R91.8 Other nonspecific abnormal finding of lung field; Z99.3 Dependence on wheelchair
CPT/HCPCS: 36415; 71010; 74230; 80048; 80053; 80299; 81003; 82550; 82553; 84484; 85025; 87081; 93005; 99285

== ENCOUNTER 2017-05-22 09:55 | Inpatient (IN) | payer MEDICARE, MEDICAID ==
[~2017-05-22] VITALS: Ht 172.7 cm; Wt 79.4 kg
[~2017-05-22 09:55] MED LIST changes: +AZITHROMYCIN250 MG ORAL; +ZITHROMAX500 MG ORAL
[2017-05-22] MEDS ORDERED: Haloperidol 5mg/ml Inj IM ONE (10:00)
[2017-05-22] MEDS ORDERED: LORazepam Inj 2mg/ml 1ml IM ONE (10:00)
[2017-05-22] MEDS ORDERED: DiphenhydrAMINE 50mg/ml Inj IM ONE (10:00)
--- NOTE | 2017-05-22 10:45 | Diagnostic Imaging Report ---
Indication: Shortness of breath Technique: XRAY Chest 1v. Comparison: 03/14/2017 Findings: The cardiomediastinal silhouette is stable. There are no acute infiltrates. Chronic interstitial changes noted. Colon is interposed between the right hemidiaphragm and the liver. Impression: No acute abnormality. Chronic interstitial disease. Chilaiditi sign.
[2017-05-22 11:21] LABS: BASOPHILS % (AUTO) 1.1 % (0.0-2.0); EOSINOPHILS % (AUTO) 6.6 % (0.0-3.0); HEMATOCRIT 41.1 % (42.0-52.0); HEMOGLOBIN 13.8 G/DL (14.2-18.0); LYMPHOCYTES % (AUTO) 22.9 % (20.0-45.0); MEAN CORPUSCULAR VOLUME 92 FL (80-99); MONOCYTES % (AUTO) 10.6 % (1.0-10.0); NEUTROPHILS % (AUTO) 58.8 % (45.0-75.0); PLATELET COUNT 199 K/UL (150-450); RED BLOOD COUNT 4.47 M/UL (4.70-6.10); RED CELL DISTRIBUTION WIDTH 11.9 % (11.6-14.8); WHITE BLOOD COUNT 5.6 K/UL (4.8-10.8)
[2017-05-22 11:32] LABS: ANION GAP 4 mmol/L (5-15); BLOOD UREA NITROGEN 20 mg/dL (7-18); CALCIUM 9.4 MG/DL (8.5-10.1); CARBON DIOXIDE 32 MMOL/L (21-32); CHLORIDE 97 MMOL/L (98-107); POTASSIUM 3.9 MMOL/L (3.5-5.1); SODIUM 133 MMOL/L (136-145)
[2017-05-22 11:37] LABS: ALANINE AMINOTRANSFERASE 26 U/L (12-78); ALBUMIN 3.4 G/DL (3.4-5.0); ALBUMIN/GLOBULIN RATIO 0.7 (1.0-2.7); ALKALINE PHOSPHATASE 86 U/L (46-116); ASPARTATE AMINO TRANSFERASE 24 U/L (15-37); BILIRUBIN,TOTAL 0.3 MG/DL (0.2-1.0); CREATINE KINASE 180 U/L (26-308)
--- NOTE | 2017-05-22 11:54 | Emergency Room Report ---
History of Present Illness General Chief Complaint: Behavioral Complaint Source: Medical Record Present Illness HPI According to B and C general manager: After initial evaluation patient Weak, not able to eat today, moaning. Coughing and choking. ? congestion. Didn't sleep well. Violence not unusual. Patient is sent from a [id number] facility with minimal supervision for agitated behavior. The patient has mental retardation and schizophrenia. The staff there was unable to tell paramedics whether the patient's been taking his medication or not. Is unable to communicate with us. Dx Mar 2016: 1. Failure to thrive. 2. Gram-negative urinary tract infection versus contaminated specimen. 3. Mental retardation. 4. History of psychosis. 6. Gait disorder, status post hip fracture in 2011. 7. Generalized weakness. 8. Declined status, which could be due to psychotropic treatment or other unrecognized illness to be determined later. Dx: February 2017 1. Failure to thrive. 2. Abnormal chest x-ray, possible aspiration pneumonia with comments as above versus chronic changes. 3. Mental retardation. 4. Schizophrenia. Allergies: Coded Allergies: No Known Allergies (Verified , 02/19/06) Patient History Limited by: medical condition Past Medical History: see triage record, old chart reviewed Past Surgical History: other - L hip fx Social History: Denies: smoking, alcohol use Social History Narrative board and care Reviewed Nursing Documentation: PMH: Agreed, PSxH: Agreed Nursing Documentation-PMH Hx Cardiac Problems: No Hx Hypertension: Yes Hx Pacemaker: No Hx Asthma: No Hx COPD: No Hx Diabetes: No Hx Cancer: No Hx Gastrointestinal Problems: No Hx Dialysis: No History Of Psychiatric Problem: Yes - mental retardation,schizo Hx Neurological Problems: Yes - Mental Retardation Hx Cerebrovascular Accident: No Hx Dementia: Yes Hx Seizures: Yes Hx Aphasia: Yes Review of Systems All Other Systems: limited Physical Exam Vital Signs Date Time Temp Pulse Resp B/P (MAP) Pulse Ox O2 Delivery O2 Flow Rate FiO2 05/22/17 09:45 98.0 80 16 130/80 98 Room Air 98.1 Sp02 EP Interpretation: reviewed, normal General Appearance: non-toxic, Chronically Ill Head: normocephalic, atraumatic Eyes: bilateral eye normal inspection, bilateral eye PERRL ENT: moist mucus membranes Neck: supple Respiratory: lungs clear, normal breath sounds Cardiovascular #1: regular rate, rhythm Cardiovascular #2: 2+ radial (R) Gastrointestinal: normal inspection, normal bowel sounds, non tender, no mass, non-distended Musculoskeletal: back normal, gait/station normal, normal range of motion Neurologic: alert, motor weakness - LE - UE with 5/5 strength, other - ebulic Psychiatric: other - poor comprehension and striking out at staff Reflexes: 2+ knee (R), 2+ knee (L) Skin: warm/dry, other - stage 1 decub sacrum and buttock Medical Decision Making Medical: Other - mental retardation Behavioral: Schizophrenia Reaction to Intervention: Other - unable to interact due to mental retardation Diagnostic Impression: Primary Impression: Choking Qualified Codes: T17.308A - Unspecified foreign body in larynx causing other injury, initial encounter Additional Impressions: Failure to thrive Qualified Codes: R62.7 - Adult failure to thrive Weakness Dementia Qualified Codes: F03.91 - Unspecified dementia with behavioral disturbance Schizophrenia Qualified Codes: F20.9 - Schizophrenia, unspecified ER Course Patient presents with choking and weakness. Difficult to assess with developmental delay. DDx: aspiration, dehydration, exacerbation of schizophrenia, UTI, electrolyte abnormality, CVA amongst others. Though ebullic , non-focal neurologic exam - doubt CVA. Evaluation with EKG, CXR, labs. As violent with staff, need to sedate to proceed. (History from EMS very different from general manager of board and care.) Treatment with IV hydration after sedation. EKG without injury. CXR - no infiltrates. Labs with normal WBC and lytes. BUN slightly high possibly from dehydration. Unable to assess swallowing capability. Needs observation and further assessment. Admit med Dr. Cordova. (Dr. Cordoav evaluated patient in ED.) Laboratory Tests Test 05/22/17 10:09 05/22/17 11:33 White Blood Count 5.6 K/UL (4.8-10.8) Red Blood Count 4.47 M/UL (4.70-6.10) L Hemoglobin 13.8 G/DL (14.2-18.0) L Hematocrit 41.1 % (42.0-52.0) L Mean Corpuscular Volume 92 FL (80-99) Mean Corpuscular Hemoglobin 30.9 PG (27.0-31.0) Mean Corpuscular Hemoglobin Concent 33.6 G/DL (32.0-36.0) Red Cell Distribution Width 11.9 % (11.6-14.8) Platelet Count 199 K/UL (150-450) Mean Platelet Volume 7.5 FL (6.5-10.1) Neutrophils (%) (Auto) 58.8 % (45.0-75.0) Lymphocytes (%) (Auto) 22.9 % (20.0-45.0) Monocytes (%) (Auto) 10.6 % (1.0-10.0) H Eosinophils (%) (Auto) 6.6 % (0.0-3.0) H Basophils (%) (Auto) 1.1 % (0.0-2.0) Sodium Level 133 MMOL/L (136-145) L Potassium Level 3.9 MMOL/L (3.5-5.1) Chloride Level 97 MMOL/L (98-107) L Carbon Dioxide Level 32 MMOL/L (21-32) Anion Gap 4 mmol/L (5-15) L Blood Urea Nitrogen 20 mg/dL (7-18) H Creatinine 1.0 MG/DL (0.55-1.30) Estimate Glomerular Filtration Rate mL/min (>60) Glucose Level 68 MG/DL (74-106) L Calcium Level 9.4 MG/DL (8.5-10.1) Total Bilirubin 0.3 MG/DL (0.2-1.0) Aspartate Amino Transferase (AST) 24 U/L (15-37) Alanine Aminotransferase (ALT) 26 U/L (12-78) Alkaline Phosphatase 86 U/L (46-116) Total Creatine Kinase 180 U/L (26-308) Troponin I 0.000 ng/mL (0.000-0.056) Total Protein 8.1 G/DL (6.4-8.2) Albumin 3.4 G/DL (3.4-5.0) Globulin 4.7 g/dL Albumin/Globulin Ratio 0.7 (1.0-2.7) L Salicylates Level 1.6 ug/mL (2.8-20) L Acetaminophen Level < 2 MCG/ML (10-30) L Serum Alcohol < 3 mg/dL Urine Color Pale yellow Urine Appearance Clear Urine pH 8 (4.5-8.0) Urine Specific [place] 1.010 (1.005-1.035) Urine Protein Negative (NEGATIVE) Urine Glucose (UA) Negative (NEGATIVE) Urine Ketones Negative (NEGATIVE) Urine Occult Blood 1+ (NEGATIVE) H Urine Nitrite Negative (NEGATIVE) Urine Bilirubin Negative (NEGATIVE) Urine Urobilinogen Normal MG/DL (0.0-1.0) Urine Leukocyte Esterase 2+ (NEGATIVE) H Urine RBC 2-4 /HPF (0 - 0) H Urine WBC 2-4 /HPF (0 - 0) Urine Squamous Epithelial Cells Occasional /LPF Urine Bacteria Occasional /HPF (NONE) Urine Opiates Screen Negative (NEGATIVE) Urine Barbiturates Screen Negative (NEGATIVE) Phencyclidine (PCP) Screen Negative (NEGATIVE) Urine Amphetamines Screen Negative (NEGATIVE) Urine Benzodiazepines Screen Negative (NEGATIVE) Urine Cocaine Screen Negative (NEGATIVE) Urine Marijuana (THC) Screen Negative (NEGATIVE) EKG Diagnostic Results Rate: normal Rhythm: NSR ST Segments: no acute changes Rhythm Strip Diag. Results EP Interpretation: yes Rhythm: NSR, no PVC's, no ectopy Chest X-Ray Diagnostic Results Chest X-Ray Diagnostic Results : Chest X-Ray Ordered: Yes # of Views/Limited/Complete: 1 View Interpretation: no consolidation, no effusion, no pneumothorax Impression: Other Electronically Signed by: Victorino Urias MD Last Vital Signs Date Time Temp Pulse Resp B/P (MAP) Pulse Ox O2 Delivery O2 Flow Rate FiO2 05/22/17 17:39 98.4 90 21 155/80 99 98.4 05/22/17 16:00 Nasal Cannula Status: improved Disposition: ADMITTED INPATIENT Condition: Serious Referrals: NON PHYSICIAN (PCP) Victorino Urias M.D. May 22, 2017 11:54
[2017-05-22 11:57] LABS: APPEARANCE,URINE CLEAR; BILIRUBIN, URINE NEGATIVE (NEGATIVE); COLOR,URINE PALE YELLOW; GLUCOSE, URINE (UA) NEGATIVE (NEGATIVE); KETONES,URINE NEGATIVE (NEGATIVE); LEUKOCYTE ESTERASE ,URINE 2+ (NEGATIVE); NITRITE,URINE NEGATIVE (NEGATIVE); PH,URINE 8 (4.5-8.0); PROTEIN,URINE NEGATIVE (NEGATIVE); UROBILINOGEN,URINE NORMAL MG/DL (0.0-1.0)
[2017-05-22] MEDS ORDERED: Milk of Magnesia 30ml Ud ORAL PRN (14:30)
[2017-05-22 16:00] VITALS: BP 163/85
--- NOTE | 2017-05-22 16:45 | History and Physical Report ---
DATE OF ADMISSION: 05/22/2017 CHIEF COMPLAINT AND REASON FOR HOSPITALIZATION: The patient admitted with lethargy, possible dysphagia, possible choking on food. HISTORY OF PRESENT ILLNESS: The patient is an 81-year-old man with advanced mental retardation, schizophrenia, seizure disorder, and gait disorder, who is wheelchair-dependent and lives in an assisted living facility for the developmentally disabled and I spoke to his membership advisor, Yoselyn Graff at [phone]. I have seen the patient multiple times before. Apparently last night, he did not sleep well and he was somewhat lethargic today and appeared to be choking on his food, and was sent to the emergency room. On a prior hospitalization, he has been placed on pureed diet because of concerns of dysphagia and he is edentulous. The patient is unable to give history. In addition to the above, he has had a prior hip fracture and he is wheelchair-dependent but nonambulatory although apparently he can do some weightbearing. He has been in this condition for quite sometime. PAST SURGERIES: Include hip fracture. ALLERGIES: None known. MEDICATIONS: Include the following. Metoprolol succinate 100 mg daily, clonazepam 0.25 mg in the morning and 0.75 mg at bedtime, Keppra 500 mg b.i.d., olanzapine 10 mg half a tablet of 5 mg b.i.d., trazodone 100 mg take 2 tablets or 200 mg at bedtime, Seroquel 100 mg t.i.d., Seroquel 400 mg at bedtime, DSS 250 b.i.d., Ensure 1 can b.i.d. SYSTEM REVIEW: The patient is unable. PHYSICAL EXAMINATION: GENERAL: The patient is lying in bed in the emergency room. He is seen after receiving some sedation. VITAL SIGNS: Temperature 98 degrees, pulse 80, respirations 16, blood pressure 130/80, pulse oximetry 98% on room air. HEAD, EYES, EARS, NOSE, THROAT: Sclerae are nonicteric. Ocular motions intact in all directions. He is edentulous. Oral mucosa moist. There is a keratosis on the left cheek and looks benign. NECK: No adenopathy. LUNGS: Clear. HEART: Regular rhythm. No murmur. ABDOMEN: Soft without organomegaly or masses. EXTREMITIES: No edema, cyanosis, or clubbing. NEUROLOGIC: The patient is awake and looks well. He is not speaking. Ocular motions intact in all directions. There is no facial asymmetry. He moves all extremities. PERTINENT LABORATORY DATA: Show white count of 5.6, hemoglobin of 13.8. Normal electrolytes. Creatinine 1. Troponin 0. Urinalysis dipstick showed 2 to 4 white cells and 2 to 4 red cells per high-powered field. The drug screen is negative. IMPRESSION: 1. Episode of possible dysphagia and aspiration. Initial chest x-ray negative. This is suggestive of aspiration pneumonia. He is already on pureed diet. 2. Altered mental status. Apparently, he was more lethargic than usual today, but if his antipsychotics increase, he becomes very agitated. I spoke to the caretakers and there is definite change in mental status today, possibly from lack of sleep, possibly from underlying infection or aspiration, and this needs to be followed up. PLAN: The patient will be put back on pureed diet. We will try to get speech therapy to evaluate him. We will watch his mental status. We will watch him for any possible aspiration and follow up closely in view of his comorbidities. Zhao Cordova M.D. : Faith JOB#: [id number] CC:
[2017-05-22] MEDS: Docusate 250mg cap ORAL SCH (17:19)
[2017-05-22 17:39] VITALS: BP 155/80
[2017-05-22 20:00] VITALS: BP 145/80
[2017-05-22] MEDS: Heparin 5000 units/ml inj SUBQ SCH (20:45)
[2017-05-22] MEDS ORDERED: QUEtiapine 200mg tab ORAL SCH (21:00)
[2017-05-22] MEDS ORDERED: clonazePAM 0.5mg tab ORAL SCH (21:00)
[2017-05-22] MEDS ORDERED: TraZODone 100mg tab ORAL SCH (21:00)
[2017-05-23 08:14] LABS: BASOPHILS % (AUTO) 0.9 % (0.0-2.0); EOSINOPHILS % (AUTO) 3.4 % (0.0-3.0); HEMATOCRIT 35.3 % (42.0-52.0); HEMOGLOBIN 12.3 G/DL (14.2-18.0); LYMPHOCYTES % (AUTO) 17.3 % (20.0-45.0); MEAN CORPUSCULAR VOLUME 91 FL (80-99); MONOCYTES % (AUTO) 9.2 % (1.0-10.0); NEUTROPHILS % (AUTO) 69.2 % (45.0-75.0); PLATELET COUNT 185 K/UL (150-450); RED BLOOD COUNT 3.87 M/UL (4.70-6.10); WHITE BLOOD COUNT 8.9 K/UL (4.8-10.8)
[2017-05-23 08:27] LABS: ANION GAP 5 mmol/L (5-15); BLOOD UREA NITROGEN 23 mg/dL (7-18); CARBON DIOXIDE 27 MMOL/L (21-32); CHLORIDE 99 MMOL/L (98-107); POTASSIUM 4.4 MMOL/L (3.5-5.1); SODIUM 131 MMOL/L (136-145)
[2017-05-23] MEDS ORDERED: clonazePAM 0.5mg tab ORAL SCH (09:00)
[2017-05-23] MEDS ORDERED: Metoprolol Succinate XL 50mg tab ORAL SCH (09:00)
--- NOTE | 2017-05-23 10:00 | Diagnostic Imaging Report ---
Indication: SOB Technique: XRAY Chest 1v. Comparison: 05/22/2017 Findings: The cardiomediastinal silhouette is unchanged. No new infiltrates are identified. Impression: No significant change from prior examination.
[2017-05-23] MEDS: Docusate 250mg cap ORAL SCH ×2 (10:28→17:21)
[2017-05-23] MEDS: Heparin 5000 units/ml inj SUBQ SCH (10:35)
[2017-05-23 12:00] VITALS: BP 147/81
--- NOTE | 2017-05-23 13:29 | Discharge Instructions ---
Discharge Instructions For Congestive Heart Failure Reminder Report to your physician any weight gain of 5 pounds or more in one week. FER CABA May 23, 2017 13:29
[2017-05-23 16:00] VITALS: BP 156/79
--- NOTE | 2017-05-23 16:17 | Cardiology Report ---
APPROVED REPORT EKG Measurement Heart [id number] NE 154P49 [id number] Sinus rhythm with premature atrial complexes in a pattern of bigeminy Otherwise normal ECG
--- NOTE | 2017-05-23 19:45 | Discharge Summary ---
DATE OF ADMISSION: 05/22/2017 DATE OF DISCHARGE: 05/23/2017 PERTINENT HISTORY: The patient has mental retardation, schizophrenia, seizure disorder and lives in an assisted living for developmentally disabled. The patient was lethargic and transferred to the emergency room, as he appeared to be choking on his food. PERTINENT PHYSICAL FINDINGS: HEENT: He is edentulous. Oral mucosa moist. LUNGS: Clear. HEART: Regular rhythm. ABDOMEN: Soft and nontender. NEUROLOGIC: He is awake. He is not speaking. Ocular motions intact in all directions. There is no facial asymmetry. He moves all extremities. COURSE IN THE HOSPITAL: The patient had an episode of choking and dysphagia with concern of aspiration. Initial chest x-ray was negative, but he was observed and repeat chest x-ray showed no infiltrate. He had altered mental status. Apparently, was more lethargic than usual, but the patient's long-term antipsychotic therapy, this was continued and on the exam 05/23/2017 after observation, he was alert. He ate 100%. There was no obvious aspiration. He tolerated pureed diet and it was felt that he could safely return to his assisted living facility. FINAL DIAGNOSES: 1. Episode of dysphagia and choking, resolved. 2. Altered mental status. 3. History of schizophrenia. 4. History of mental retardation. 5. History of gait disorder and nonambulatory status after prior hip fracture. DISCHARGE DISPOSITION: Back to the assisted living facility with a pureed diet and resume his prior to admission medications. Follow up by his primary care physician, who is not on staff at [facility]. Zhao Cordova M.D. DR: DEBORAH JOB#: [id number] CC:
== END 2017-05-23 19:34 | DRG 392 ==
LOC: EDBD 09:55 → EMR 10:30 → 4E 10:42 → EDBEDREQ 12:22
DX: R13.10 Dysphagia, unspecified (principal); F20.9 Schizophrenia, unspecified; G40.909 Epilepsy, unspecified, not intractable, without status epilepticus; R41.82 Altered mental status, unspecified; F79 Unspecified intellectual disabilities; R26.9 Unspecified abnormalities of gait and mobility; R26.2 Difficulty in walking, not elsewhere classified
CPT/HCPCS: 36415; 71045; 80048; 80053; 80299; 80307; 80329; 81003; 82550; 84484; 85025; 87081; 93005; 99285

== ENCOUNTER 2018-04-20 20:02 | Observation (INO) | payer MEDICARE, MEDICAID ==
[~2018-04-20] VITALS: Ht 188 cm; Wt 88.5 kg
[2018-04-20] MEDS ORDERED: ACETAMINOPHEN325 M1 ORAL (20:36)
[2018-04-20] MEDS ORDERED: DIPHENHYDRAMINE25 M1 ORAL (20:36)
--- NOTE | 2018-04-20 21:43 | Emergency Room Report ---
History of Present Illness General Chief Complaint: Pain Source: Caregiver Present Illness HPI Patient presents with dysuria for several days. He's had urinary tract infections in the past. The medical claims specialist's deny nausea, vomiting, diarrhea, fever , chills. The tried to give him pain medication but he refused at home. Patient with dementia and unable to give history. Last admitted April 2017. D/C dx: 1. Episode of dysphagia and choking, resolved. 2. Altered mental status. 3. History of schizophrenia. 4. History of mental retardation. 5. History of gait disorder and nonambulatory status after prior hip fracture. Allergies: Coded Allergies: No Known Allergies (Verified , 02/19/06) Patient History Limited by: medical condition Past Medical History: see triage record, old chart reviewed Past Surgical History: other - hip surgery L Social History Narrative with caretakers Reviewed Nursing Documentation: PMH: Agreed; PSxH: Agreed Nursing Documentation-PMH Hx Cardiac Problems: Yes Hx Hypertension: Yes Hx Pacemaker: No Hx Asthma: No Hx COPD: No Hx Diabetes: No Hx Cancer: No Hx Gastrointestinal Problems: No Hx Dialysis: No History Of Psychiatric Problem: Yes - schizo Hx Neurological Problems: Yes Hx Cerebrovascular Accident: No Hx Dementia: Yes Hx Seizures: Yes Hx Aphasia: Yes Review of Systems All Other Systems: limited Physical Exam Vital Signs Date Time Temp Pulse Resp B/P (MAP) Pulse Ox O2 Delivery O2 Flow Rate FiO2 04/20/18 20:27 98.1 81 16 143/80 94 Room Air Sp02 EP Interpretation: reviewed, normal General Appearance: no apparent distress, alert, Chronically Ill Head: normocephalic, atraumatic Eyes: bilateral eye normal inspection, bilateral eye PERRL ENT: moist mucus membranes, other - Abrasion on tip of nose Neck: full range of motion, supple Respiratory: lungs clear, normal breath sounds, no respiratory distress, speaking full sentences Cardiovascular #1: regular rate, rhythm Cardiovascular #2: 2+ radial (L) Gastrointestinal: normal bowel sounds, tenderness, other - mass suprapubic area , presumed bladder distention Genitourinary: penis normal Musculoskeletal: back normal, normal range of motion, no calf tenderness Neurologic: alert, normal gait, other - not able to speak, oriented - X1 Psychiatric: other - mild discomfort with moaning Skin: warm/dry, abrasions - nose Medical Decision Making Diagnostic Impression: Primary Impression: Suprapubic pain Additional Impressions: Urinary retention Schizophrenia Qualified Codes: F20.9 - Schizophrenia, unspecified ER Course Patient presents with alleged urinary tract infection without fever. Differential includes UTI, pyelonephritis amongst others. Evaluation will be with urinalysis. He'll be given Tylenol and Pyridium. He does not appear toxic at this time. UA without infection. (Straight cath with microscopic hematuria.) Distended bladder. After straight cath and king, 400 ml urine obtained with some improvement. Still with pain. WBC normal. CMP normal. Abd film with diffuse gas, no SBO. Some improvement after king. Admit med Dr. Cordova. Laboratory Tests Test 04/20/18 22:45 04/21/18 00:37 Urine Color Pale yellow Urine Appearance Clear Urine pH 5 (4.5-8.0) Urine Specific [place] 1.010 (1.005-1.035) Urine Protein Negative (NEGATIVE) Urine Glucose (UA) Negative (NEGATIVE) Urine Ketones Negative (NEGATIVE) Urine Blood 3+ (NEGATIVE) H Urine Nitrite Negative (NEGATIVE) Urine Bilirubin Negative (NEGATIVE) Urine Urobilinogen Normal MG/DL (0.0-1.0) Urine Leukocyte Esterase 1+ (NEGATIVE) H Urine RBC 5-10 /HPF (0 - 0) H Urine WBC 2-4 /HPF (0 - 0) Urine Squamous Epithelial Cells Few /LPF (NONE/OCC) Urine Bacteria Moderate /HPF (NONE) H White Blood Count 5.5 K/UL (4.8-10.8) Red Blood Count 4.12 M/UL (4.70-6.10) L Hemoglobin 12.9 G/DL (14.2-18.0) L Hematocrit 38.1 % (42.0-52.0) L Mean Corpuscular Volume 92 FL (80-99) Mean Corpuscular Hemoglobin 31.3 PG (27.0-31.0) H Mean Corpuscular Hemoglobin Concent 33.8 G/DL (32.0-36.0) Red Cell Distribution Width 12.2 % (11.6-14.8) Platelet Count 185 K/UL (150-450) Mean Platelet Volume 8.2 FL (6.5-10.1) Neutrophils (%) (Auto) 43.8 % (45.0-75.0) L Lymphocytes (%) (Auto) 39.3 % (20.0-45.0) Monocytes (%) (Auto) 7.4 % (1.0-10.0) Eosinophils (%) (Auto) 7.5 % (0.0-3.0) H Basophils (%) (Auto) 1.9 % (0.0-2.0) Prothrombin Time 10.2 SEC (9.30-11.50) Prothrombin Time INR 1.0 (0.9-1.1) PTT 22 SEC (23-33) L Sodium Level 135 MMOL/L (136-145) L Potassium Level 4.5 MMOL/L (3.5-5.1) Chloride Level 100 MMOL/L (98-107) Carbon Dioxide Level 30 MMOL/L (21-32) Anion Gap 5 mmol/L (5-15) Blood Urea Nitrogen 18 mg/dL (7-18) Creatinine 1.1 MG/DL (0.55-1.30) Estimate Glomerular Filtration Rate mL/min (>60) Glucose Level 110 MG/DL (74-106) H Calcium Level 8.8 MG/DL (8.5-10.1) Total Bilirubin 0.1 MG/DL (0.2-1.0) L Aspartate Amino Transferase (AST) 19 U/L (15-37) Alanine Aminotransferase (ALT) 21 U/L (12-78) Alkaline Phosphatase 95 U/L (46-116) Total Creatine Kinase 43 U/L (26-308) Troponin I 0.008 ng/mL (0.000-0.056) Total Protein 6.9 G/DL (6.4-8.2) Albumin 3.1 G/DL (3.4-5.0) L Globulin 3.8 g/dL Albumin/Globulin Ratio 0.8 (1.0-2.7) L Lipase 187 U/L (73-393) Chest X-Ray Diagnostic Results Chest X-Ray Diagnostic Results : Chest X-Ray Ordered: Yes # of Views/Limited/Complete: 1 View Indication: Other EP Interpretation: Yes Interpretation: no effusion, no pneumothorax, other - atelectasis L Impression: Other Electronically Signed by: Electronically signed by Victorino Urias MD Other X-Ray Diagnostic Results Other X-Ray Diagnostic Results : X-Ray ordered: abd # of Views/Limited Vs Complete: 2 View Indication: Pain EP Interpretation: Yes Interpretation: nonspecific bowel gas, no sbo, other - diffuse gas and stool , gas in rectum, no infiltrate L base Last Vital Signs Date Time Temp Pulse Resp B/P (MAP) Pulse Ox O2 Delivery O2 Flow Rate FiO2 04/21/18 11:04 73 158/90 04/21/18 09:00 Room Air 04/21/18 09:00 98.4 18 04/21/18 08:00 100 Status: improved Disposition: ADMITTED INPATIENT Condition: Serious Victorino Urias MD Apr 20, 2018 21:43
--- NOTE | 2018-04-20 22:30 | NUR ---
ED Nurse Note: Patient is in pain, has history of UTI, nonverbal.
[2018-04-20 23:07] LABS: APPEARANCE,URINE CLEAR; BILIRUBIN, URINE NEGATIVE (NEGATIVE); COLOR,URINE PALE YELLOW; GLUCOSE, URINE (UA) NEGATIVE (NEGATIVE); KETONES,URINE NEGATIVE (NEGATIVE); LEUKOCYTE ESTERASE ,URINE 1+ (NEGATIVE); NITRITE,URINE NEGATIVE (NEGATIVE); PH,URINE 5 (4.5-8.0); PROTEIN,URINE NEGATIVE (NEGATIVE); UROBILINOGEN,URINE NORMAL MG/DL (0.0-1.0)
[2018-04-21] VITALS (8 sets, daily range): BP systolic 138–179; BP diastolic 73–90
[2018-04-21] MEDS ORDERED: Morphine Sulfate 4mg/ml Inj (IV USE ONLY) IVP ONE (00:15)
[2018-04-21 00:54] LABS: BASOPHILS % (AUTO) 1.9 % (0.0-2.0); EOSINOPHILS % (AUTO) 7.5 % (0.0-3.0); HEMATOCRIT 38.1 % (42.0-52.0); HEMOGLOBIN 12.9 G/DL (14.2-18.0); LYMPHOCYTES % (AUTO) 39.3 % (20.0-45.0); MEAN CORPUSCULAR VOLUME 92 FL (80-99); MONOCYTES % (AUTO) 7.4 % (1.0-10.0); NEUTROPHILS % (AUTO) 43.8 % (45.0-75.0); PLATELET COUNT 185 K/UL (150-450); RED BLOOD COUNT 4.12 M/UL (4.70-6.10); RED CELL DISTRIBUTION WIDTH 12.2 % (11.6-14.8); WHITE BLOOD COUNT 5.5 K/UL (4.8-10.8)
[2018-04-21 01:05] LABS: ANION GAP 5 mmol/L (5-15); BLOOD UREA NITROGEN 18 mg/dL (7-18); CALCIUM 8.8 MG/DL (8.5-10.1); CARBON DIOXIDE 30 MMOL/L (21-32); CHLORIDE 100 MMOL/L (98-107); CREATININE 1.1 MG/DL (0.55-1.30); POTASSIUM 4.5 MMOL/L (3.5-5.1); SODIUM 135 MMOL/L (136-145)
[2018-04-21 01:10] LABS: ALANINE AMINOTRANSFERASE 21 U/L (12-78); ALBUMIN 3.1 G/DL (3.4-5.0); ALBUMIN/GLOBULIN RATIO 0.8 (1.0-2.7); ALKALINE PHOSPHATASE 95 U/L (46-116); ASPARTATE AMINO TRANSFERASE 19 U/L (15-37); BILIRUBIN,TOTAL 0.1 MG/DL (0.2-1.0); CREATINE KINASE 43 U/L (26-308)
--- NOTE | 2018-04-21 03:12 | NUR ---
ED Nurse Note: PT is transfered to MED SURG floor with RN ZORAN. all pt vital signs status and condition reported to ERMD and receving RN prior to transfer. pt is stable for transfer. pt transfered with all belongings.
--- NOTE | 2018-04-21 04:30 | NUR ---
NURSE NOTES: Received patient from ER via [facility] report given by ALYSA Acosta. Patient awake, moaning and non-verbal. No facial grimacing noted. Patient trying to remove IV access and place kerlix over it. Padded side rails for seizure precaution. Belongings reviewed and accounted for. Patient came with gown and pair of white socks. Bed in lowest position and locked. Call light within reach. Will call Dr. Cordova for admitting orders. Will continue to monitor.
--- NOTE | 2018-04-21 04:41 | NUR ---
NURSE NOTES: Received orders from Dr. Cordova Diet NPO and fluids of 1/2 NS at 75 cc/hr. I tried to ask for status code and dvt prophylaxis. As per Dr. Cordova other orders to follow in the morning. Charge nurse Jorge made aware.
--- NOTE | 2018-04-21 06:25 | NUR ---
NURSE NOTES: Called Dr. Cordova for patient getting restless, removing IV access and pulling king catheter if we can place on soft restraint, no new orders.
[2018-04-21] MEDS ORDERED: Acetaminophen 500mg (ES) tab ORAL PRN ×2 (06:45→11:00)
[2018-04-21] MEDS ORDERED: Bisacodyl EC 5mg tab ORAL SCH (07:00)
--- NOTE | 2018-04-21 07:05 | NUR ---
NURSE NOTES: Called [facility] facility spoke to Linda for clarification of patient status code and diet. Dallas barkley will call us back because supervisor respiratory is not yet in.
--- NOTE | 2018-04-21 07:30 | NUR ---
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 Also mention patient is with [facility] psychosocial rehabilitation counselor Chanel Carrasquillo [phone] and [phone].
--- NOTE | 2018-04-21 08:12 | NUR ---
HAND-OFF: Report given to ALYSA Leigh.
[2018-04-21] MEDS ORDERED: Heparin 5000 units/ml inj SUBQ SCH (09:00)
[2018-04-21] MEDS ORDERED: clonazePAM 0.5mg tab ORAL SCH ×3 (09:00→21:00)
[2018-04-21] MEDS ORDERED: Metoprolol Succinate XL 100mg tab ORAL SCH (09:00)
[2018-04-21] MEDS ORDERED: Docusate 250mg cap ORAL SCH (09:00)
--- NOTE | 2018-04-21 10:30 | NUR ---
NURSE NOTES: phoned facility in regards to pt status made aware of bx of pulling out lines. Dr gave okay fro no IV. IV replaced x 2. Dr gave orders fro restraints to wrist soft in nature as preventive measure to prevent dislodgment. Continues to be confused. Pt not pulling on Ann at this time. Dr made aware that f/c is draining well. Pt has not pulled on fc tubing pt baseline is confused. Is not able to verbalize needs . All anticipated needs require to be met. Skin remains intact pulses palpable. Unable to provide pt 2 to baseline mental status. Frequent room rounds will be made.
--- NOTE | 2018-04-21 10:48 | Diagnostic Imaging Report ---
Indication: Chest and abdominal pain Technique: One view of the chest Comparison: 05/23/2017 Findings: Again demonstrated is bilateral interstitial disease, with some associated airspace opacities in the right upper lobe and in the left lung. The left hemidiaphragm is obscured. There is some chronic appearing pleural thickening in the left midlung. The right hemidiaphragm remains elevated. Impression: Bilateral interstitial and airspace disease. May indicate interstitial edema, but similarity to prior exam suggests a significant chronic component. Correlate with clinical findings Possible left pleural effusion
--- NOTE | 2018-04-21 10:49 | Diagnostic Imaging Report ---
Indication: Abdominal pain for 3 days Technique: Supine view of the abdomen Comparison: 10/30/2011 Findings: Considerable gas is seen in nondilated small bowel loops. Gas and stool is seen in the colon which is normal in caliber. No unusual masses or calcifications. The right hemidiaphragm is elevated. Findings are overall similar to the prior exam. There is a left hip prosthesis, which is a new finding Impression: Findings as noted. No definite acute process
[2018-04-21] MEDS: Docusate 250mg cap ORAL SCH ×2 (11:03→17:50)
[2018-04-21] MEDS: Metoprolol Succinate XL 100mg tab ORAL SCH (11:04)
[2018-04-21] MEDS: clonazePAM 0.5mg tab ORAL SCH (11:04)
[2018-04-21] MEDS: Heparin 5000 units/ml inj SUBQ SCH ×2 (11:06→21:07)
--- NOTE | 2018-04-21 12:00 | NUR ---
NURSE NOTES: Follow up call to made in attempts to report elevated blood pressure. Current plan of care will be followed
--- NOTE | 2018-04-21 16:14 | NUR ---
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 98.1 HR 81 RR 16 B/P 143/80 NA 135 CXR= SHIRA INTERSTITIAL DISEASE ABD X-RAY= NO ACUTE PROCESS IS: PYRIDIUM PO TYLENOL PO ADMITTED TO MED/SURG MED/SURG STATUS DCP RETURN HOME
--- NOTE | 2018-04-21 18:03 | NUR ---
NURSE NOTES: Dermatology Technician removed right restraint to assess skin allow for full range of motion to rt hand. Is able to be redirected while a body is in the room. Pt began pulling on opposite restraint and pulling covers up to reach f/c Dr Cordova present made aware of bx. Gave okay to keep IV line out at this time. Fully hydrated drinks well. Mucous membrane moist. Skin to wrist without presence of redness. unable to follow directions to squeeze writers hand at this time. Pulses palap[able as well capillary refill < 3
--- NOTE | 2018-04-21 18:25 | NUR ---
NURSE NOTES: Pt continues not moves excessively despite repositioning and pain medication per flacc scale. Pt is non verbal but does follow commands. Current paln of care will be followed. urine yellow clear without presence of sediment or blood. Pt repositioned through out shift gave okay to not reinsert IV as well as pending orders to d/c Ann tomorrow
[2018-04-21] MEDS: Bactrim-DS 1 tab ORAL SCH (18:37)
--- NOTE | 2018-04-21 19:39 | NUR ---
NURSE NOTES: Dr Shaw called in regards to pt progress ; made aware of that Dr napier put in orders to D/C Seth. Dr Craven wanted to ensure that pt received Flomax. endorsed to oncoming nurse. t remained nonverbal. Oncoming nurse made aware of pt b/p . B/P lowered after pain medication given. Current plan of acre will be given.
--- NOTE | 2018-04-21 20:00 | NUR ---
NURSE NOTES: Patient in bed, awake, nonverbal. No s/s of pain or discomfort noted. On soft wrist restrains, pulse noted, no redness noted. Ann catheter noted, patent. No iv site. Skin is warm and dry to touch. abdomen is soft and non distended. respiration is even and unlabored. Kept clean and comfortable. Call light is at bedside. Frequent visual checks. Will continue plan of care.
[2018-04-21] MEDS ORDERED: TraZODone 100mg tab ORAL SCH ×2 (21:00)
[2018-04-21] MEDS ORDERED: Tamsulosin 0.4mg cap ORAL SCH (21:00)
[2018-04-21] MEDS: Tamsulosin 0.4mg cap ORAL SCH (21:05)
--- NOTE | 2018-04-21 21:30 | History and Physical Report ---
DATE OF ADMISSION: 04/21/2018 CHIEF COMPLAINT/REASON FOR HOSPITALIZATION: The patient admitted with urinary retention and abdominal pain. HISTORY OF PRESENT ILLNESS: The patient is an 82-year-old man with mental retardation, schizophrenia, seizure disorder, gait disorder, and wheelchair-dependent, lives in assisted living facility. He apparently is noting grunting and appeared to have abdominal pain, was seen in the emergency room. Findings in the emergency room showed a postvoiding residual 400 mL with an in and out catheter and Ann was left in place to deal with urinary retention. He also had a history of BPH and prior episodes of urinary retention. PAST SURGERIES: Hip fractures. ALLERGIES: None known. MEDICATIONS: From the facility include the following, metoprolol ER 100 mg daily, Klonopin 0.5 mg tablet in the morning and 1.5 mg tablets at bedtime, Keppra 500 mg b.i.d., olanzapine 5 mg b.i.d., trazodone 200 mg at bedtime, Seroquel 100 mg in the morning, Seroquel 600 mg at bedtime, DSS 250 mg b.i.d., Benadryl 50 mg at bedtime, and Tylenol is p.r.n. HABITS: He is a nondrinker and nonsmoker. SYSTEM REVIEW: The patient is unable. Major problems as above. PHYSICAL EXAMINATION: GENERAL: The patient is lying in bed, alert and mumbling, but not able to carry on a conversation. VITAL SIGNS: Temperature is 98, pulse 172, respirations 18, and blood pressure 179/90. HEAD, EYES, EARS, NOSE, AND THROAT: Sclerae are nonicteric. Ocular motions intact in all directions. Oral mucosa is moist. NECK: No adenopathy. LUNGS: Clear. HEART: Regular rhythm. No murmur. ABDOMEN: Soft. I am unable to feel liver or spleen. GENITOURINARY: Penis and testes normal. Ann is in place. EXTREMITIES: No edema, cyanosis, or clubbing. NEUROLOGIC: He is alert, unable to carry on a conversation, but follows some simple instructions. He has generalized weakness. There is no focal weakness in cranial nerves. LABORATORY AND DIAGNOSTIC DATA: Labs were reviewed on the chart. IMPRESSION: 1. Urinary retention. 2. Abdominal pain. EKG shows nonspecific gas pattern. 3. Mental retardation. 4. Schizophrenia. 5. Mild low albumin 3.1 consistent with mild protein-calorie malnutrition. 6. Agitated behavior earlier today improving now, but he pulled out his IV several times. PLAN: As the patient has a Ann, we will try to see if we can do a voiding trial. Observe his condition. He is a high-risk patient and he is nonambulatory and has difficulty with communication. Zhao Cordova M.D. DR: JOSE JOB#: [id number] CC:
--- NOTE | 2018-04-21 22:15 | Consultation ---
DATE OF CONSULTATION: 04/21/2018 CONSULTING PHYSICIAN: Sanjay Shaw M.D. REFERRING PHYSICIAN: Zhao Cordova M.D. REASON FOR CONSULTATION: For evaluation of urinary retention. HISTORY OF PRESENT ILLNESS: This is an 82-year-old male. He came to the hospital because of dysuria. Apparently, he had some suprapubic discomfort with urinary retention. Ann catheter has been placed. The patient has baseline dementia. It is difficult to get history. Urology evaluation is requested. PAST MEDICAL HISTORY: Significant for above. Also, history of coronary artery disease and hypertension. PAST SURGICAL HISTORY: Unknown. CURRENT MEDICATIONS: In the hospital, the patient is on Seroquel, Desyrel, Klonopin, heparin, and Keppra. ALLERGIES: No known drug allergies. SOCIAL HISTORY: Smoking history is unknown. FAMILY HISTORY: Unable to obtain. REVIEW OF SYSTEMS: Unable to obtain. PHYSICAL EXAMINATION: GENERAL: Elderly male, in no acute distress. VITAL SIGNS: Temperature is 98.1, blood pressure is 154/81, pulse 70, and respirations 20. HEENT: Normocephalic. NECK: Supple. ABDOMEN: Soft. Ann catheter is in place. GENITOURINARY: Urine is yellowish shima. LABORATORY DATA: BUN is 18 and creatinine 1.1. Potassium 4.5. White count 5.5, hemoglobin 12.9, and platelets are 185,000. INR is 1.0. UA showed 5 to 10 rbcs and 1+ leukocyte esterase. DIAGNOSTIC IMAGING STUDIES: The patient had abdominal x-ray, which was noted. There is no renal imaging. IMPRESSION: 1. Urinary retention. 2. BPH history. 3. Possible neurogenic bladder. 4. Hematuria. 5. Pyuria. PLAN AND DISCUSSION: The patient to be continued to be monitored clinically. Ann is indwelling. He has been confused. I did ask the nursing staff to place restraints to prevent him from pulling the Ann out. He currently has antibiotics ordered. I did order Flomax and Proscar and we will plan on a voiding trial in the near future. He will need to have cystoscopy at some point to complete the workup. I will also consider ordering imaging study of the kidney, either an ultrasound or CT scan. Thank you, Dr. Cordova, for asking me to participate in this consultation. Sanjay Shaw M.D. DR: SEVERINO JOB#: [id number] CC:
[2018-04-22] VITALS: BP 135/76
[2018-04-22 04:00] VITALS: BP 138/71
--- NOTE | 2018-04-22 05:22 | NUR ---
NURSE NOTES: Ann Catheter removed per order. Will do post void residual. Patient in bed, awake, no s/s of distress noted.
--- NOTE | 2018-04-22 07:32 | NUR ---
HAND-OFF: Report given to ALYSA Naylor.
--- NOTE | 2018-04-22 07:49 | Urology Progress Note ---
Assessment/Plan Assessment/Plan 1. Urinary retention. 2. BPH history. 3. Possible neurogenic bladder. 4. Hematuria. 5. Pyuria. monitor for voiding check PVR and reinsert king PRN cont flomax and proscar on abx cysto later consider renal imaging study d/w nursing staff Subjective Allergies: Coded Allergies: No Known Allergies (Verified , 02/19/06) Subjective looks comfortable, king removed earlier this morning, hasn't voided yet Objective Last 24 Hour Vital Signs Date Time Temp Pulse Resp B/P (MAP) Pulse Ox O2 Delivery O2 Flow Rate FiO2 04/22/18 04:00 97.0 74 20 138/71 (93) 95 04/22/18 00:00 97.1 86 20 135/76 (95) 98 04/21/18 21:00 Room Air 04/21/18 20:00 97.3 78 20 138/73 (94) 96 04/21/18 16:00 98.1 78 20 154/81 (105) 04/21/18 12:00 98.1 72 18 179/90 (119) 94 04/21/18 11:04 73 158/90 04/21/18 09:00 Room Air 04/21/18 09:00 98.4 73 18 158/90 (112) 04/21/18 08:00 98.4 73 18 158/90 (112) 100 Intake and Output 04/21/18 04/22/18 18:59 06:59 Intake Total 708 ml 500 ml Output Total 800 ml 650 ml Balance -92 ml -150 ml Intake Oral 708 ml 500 ml Output Urine Total 800 ml 650 ml Bladder Scan Volume Amount <10 ml # Voids 1 Microbiology Date/Time Source Procedure Growth Status 04/21/18 03:28 Rectum Received Current Medications Medications (Trade) Dose Ordered Sig/Catracho Route PRN Reason Start Time Stop Time Status Last Admin Dose Admin Acetaminophen (Tylenol) 500 mg Q4H PRN ORAL Mild Pain/Temp > 100.5 04/21/18 11:00 05/21/18 10:59 04/21/18 17:51 Clonazepam (KlonoPIN) 0.25 mg DAILY ORAL 04/21/18 11:00 04/28/18 10:59 04/21/18 11:04 Clonazepam (KlonoPIN) 0.75 mg QHS ORAL 04/21/18 21:00 04/28/18 20:59 04/21/18 21:06 Diphenhydramine HCl (Benadryl) 50 mg QHS ORAL 04/21/18 21:00 05/21/18 20:59 04/21/18 21:05 Docusate Sodium (Colace) 250 mg BID ORAL 04/21/18 11:00 05/21/18 10:59 04/21/18 17:50 Finasteride (Proscar) 5 mg DAILY ORAL 04/21/18 09:15 05/21/18 09:14 04/21/18 11:03 Heparin Sodium (Porcine) (Heparin 5000 units/ml) 5,000 units EVERY 12 HOURS SUBQ 04/21/18 11:00 05/21/18 10:59 04/21/18 21:07 Levetiracetam (Keppra) 500 mg Q12HR ORAL 04/21/18 11:00 05/21/18 10:59 04/21/18 21:06 Metoprolol Succinate (Toprol XL) 100 mg DAILY ORAL 04/21/18 11:00 05/21/18 10:59 04/21/18 11:04 Olanzapine (ZyPREXA) 5 mg BID ORAL 04/21/18 11:00 05/21/18 10:59 04/21/18 17:50 Quetiapine Fumarate (SEROquel) 100 mg DAILY ORAL 04/21/18 11:00 05/21/18 10:59 04/21/18 11:14 Quetiapine Fumarate (SEROquel) 300 mg QHS ORAL 04/21/18 21:00 05/21/18 20:59 04/21/18 21:49 Tamsulosin HCl (Flomax) 0.4 mg Q12HR ORAL 04/21/18 21:00 05/21/18 20:59 04/21/18 21:05 Trazodone HCl (Desyrel) 200 mg BEDTIME ORAL 04/21/18 21:00 05/21/18 20:59 04/21/18 21:49 Trimethoprim/ Sulfamethoxazole (Bactrim-DS) 1 tab TWICE A DAY ORAL 04/21/18 18:00 04/28/18 17:59 04/21/18 18:37 Height (Feet): 6 Height (Inches): 2.00 Weight (Pounds): 195 Objective exam stable Sanjay Shaw MD Apr 22, 2018 07:49
[2018-04-22 08:00] VITALS: BP 123/69
[2018-04-22] MEDS: Bactrim-DS 1 tab ORAL SCH (08:35)
[2018-04-22] MEDS: clonazePAM 0.5mg tab ORAL SCH (08:36)
[2018-04-22] MEDS: Docusate 250mg cap ORAL SCH (08:36)
[2018-04-22] MEDS: Tamsulosin 0.4mg cap ORAL SCH (08:36)
[2018-04-22] MEDS: Metoprolol Succinate XL 100mg tab ORAL SCH (08:36)
[2018-04-22] MEDS: Heparin 5000 units/ml inj SUBQ SCH (08:37)
--- NOTE | 2018-04-22 10:25 | NUR ---
NURSE NOTES: bladder scanned and 0ml noted. gave patient 180ml of fluids. patient appears nonverbal and not able to follow commands. On blayne soft restraints from attempting to remove devices. unable to reinsert IV for patient not being cooperative. hob elevated for aspiration precautions. siderails are up x3. call light is within reach. bed alarm is activated. will cont to monitor.
[2018-04-22 11:58] VITALS: BP 145/70
[2018-04-22] MEDS ORDERED: FLOMAX0.4 MG ORAL (13:46)
[2018-04-22] MEDS ORDERED: FINASTERIDE5 MG ORAL (13:46)
--- NOTE | 2018-04-22 14:38 | NUR ---
NURSE NOTES: PVD monitored 106ml output after voiding. awaits for ambulance to discharge back to [facility]. left voicemessage to the next of kin and informed facility of his return. No acute resp distress noted. will cont to monitor.
--- NOTE | 2018-04-22 14:43 | NUR ---
*-* DISCHARGE PLANNED*-* PATIENT IS DISCHARGED BACK TO: [facility] T:[phone] FOR NURSE TO NURSE REPORT [facility] HAS BEEN ARRANGED FOR HEARING THERAPIST AT [address] [id number]
--- NOTE | 2018-04-22 15:51 | NUR ---
NURSE NOTES: ambulance here to transport patient to [facility]. no personal belongings except for socks. d/c restraints on blayne soft wrists. patient is in stable condition. No IV access.
[2018-04-22 16:01] VITALS: BP 157/92
--- NOTE | 2018-04-22 16:50 | Diagnostic Imaging Report ---
Indication: Hematuria, pyuria, urinary retention Technique: Grayscale and duplex images of the kidneys, retroperitoneum, and bladder were obtained. Comparison: none Findings: Exam is at limited, as per technologist patient was combative. Right kidney measures 9.2 cm in length. Left kidney measures 8.5 cm in length. Both kidneys demonstrate normal echogenicity. No hydronephrosis. There is small left renal cyst incidentally noted.. Normal inferior vena cava. Bladder is trabeculated. Bladder volume calculated at 153 mL. Patient did not void. Impression: Limited exam, as described Negative for hydronephrosis Trabeculated bladder, could indicate chronic bladder obstruction.
--- NOTE | 2018-04-22 21:00 | Discharge Summary ---
DATE OF ADMISSION: 04/20/2018 DATE OF DISCHARGE: 04/22/2018 PERTINENT HISTORY: The patient is admitted for vague abdominal discomfort. He was confused. He has a history of mental retardation and schizophrenia. PERTINENT PHYSICAL FINDINGS: GENERAL: The patient is alert. Mumbles a few words. LUNGS: Clear. HEART: Regular rhythm. ABDOMEN: Soft. No organomegaly or tenderness. EXTREMITIES: No edema. GENITOURINARY: A Ann was placed in the emergency room having a retention of 400 mL. COURSE IN THE HOSPITAL: The patient had a KUB in the emergency room showing gas and nondilated small bowel loops and left hip prosthesis. He had a Ann catheter overnight and was given a voiding trial and was seen by Dr. Shaw. He was given finasteride and tamsulosin for BPH. The patient was observed and was able to void without high residuals. He tolerated diet. He was maintained on his psychotropic medicines and had some mild agitation, but was cooperative for eating and in no acute distress. There was no obvious abdominal pain or change in condition. The urine culture showed mixed organisms likely a contaminant. He did get a few doses of oral antibiotics pending cultures and it was felt that he had reached maximal hospital benefit and was discharged back to his assisted living facility in a stable condition. FINAL DIAGNOSES: 1. Acute urinary retention. 2. Abdominal pain, nonspecific, possibly from constipation. 3. History of mental retardation. 4. History of schizophrenia. 5. Nonambulatory. DISCHARGE DISPOSITION: Back to his assisted living facility with a soft diet. DISCHARGE MEDICATIONS: Per the discharge medication list. FOLLOWUP: Follow up by his primary care physician. He is not on staff in this hospital Zhao Cordova M.D. DR: CHIDI JOB#: [id number] CC:
--- NOTE | 2018-04-24 11:16 | Cardiology Report ---
APPROVED REPORT EKG Measurement Heart [id number] NE 170P34 [id number] Sinus rhythm withsingle APC Otherwise normal ECG
== END 2018-04-22 16:00 ==
LOC: EMR 21:11 → INTOOBSV 04-21 01:08 → UNDOADMIN 04-21 01:08 → 3E 04-21 01:08 → UNDOADMOB 04-21 01:08 → EDBEDREQ 04-21 01:25 → OBSVTOIN 04-21 06:40 → 3E 04-21 06:40 → INTOOBSV 04-21 06:40 → OBSVTOIN 04-21 18:01 → INTOOBSV 04-21 18:01
DX: N40.1 Benign prostatic hyperplasia with lower urinary tract symptoms (principal); E44.1 Mild protein-calorie malnutrition; R33.8 Other retention of urine; F79 Unspecified intellectual disabilities; F20.9 Schizophrenia, unspecified; R45.1 Restlessness and agitation; K59.00 Constipation, unspecified; R10.9 Unspecified abdominal pain; I25.10 Atherosclerotic heart disease of native coronary artery without angina pectoris; I10 Essential (primary) hypertension; N31.9 Neuromuscular dysfunction of bladder, unspecified; Z96.642 Presence of left artificial hip joint; R26.2 Difficulty in walking, not elsewhere classified; Z68.25 Body mass index [BMI] 25.0-25.9, adult
CPT/HCPCS: 36415; 51702; 71045; 74018; 76770; 80053; 80299 ×2; 81003; 82550; 83690; 84484; 85025; 85610; 85730; 87081 ×3; 87086 ×2; 93005; 96374; 96375; 99284; G0378 ×2; J1644 ×2; J2270; J2405